=== PATIENT | male | born 1990 | race Caucasian/White ===

== ENCOUNTER 2019-07-27 12:17 | Outpatient (CLI) | payer MEDICAID, SELFPAY ==
--- NOTE | 2019-07-27 | XR_ITS ---
WS: [id number] CERVICAL SPINE TECHNIQUE: 3 views of the cervical spine CLINICAL INFORMATION: CERVICALGIA COMPARISON: None. FINDINGS: Mild cervical curve convex left. Normal dens. Normal C1-2 articulation. Normal lateral masses. Straig htening of the normal cervical lordosis. Normal prevertebral soft tissues. No instability on flexion- extension. XR/XR cervical spine 4-5V [id number] IMPRESSION: 1. Mild cervical curve convex left. 2. No instability on flexion-extension
== END 2019-07-27 12:18 | disposition home or self-care (01) ==
LOC: RADOUTREAD 07-28 07:10
PROVIDERS: Family Provider Family Medicine; Visit Provider Family Medicine
DX: Z76.89 Persons encountering health services in other specified circumstances (principal)

== ENCOUNTER 2021-08-01 16:09 | Inpatient (IN) | payer MEDICAID, SELFPAY ==
[2021-08-01] VITALS (17 sets, daily range): BP systolic 123–144; BP diastolic 78–90; PULSE 91–131; RESP 18–32; TEMP 37.2; O2SAT 96–100; BMI 26.6
--- NOTE | 2021-08-01 16:25 | XR_ITS ---
WS: [id number] XR chest 1V portable [id number] REASON FOR EXAM: COVID FINDINGS: The heart and mediastinum are within normal limits. Calcified granulomatous changes in both hemithoraces. No acute pulmonary parenchymal or pleural abnormality. Bony thorax is intact. XR/XR chest 1V portable [id number] IMPRESSION: No acute chest abnormality.
--- NOTE | 2021-08-01 16:42 | PC.NURSE ---
Called Poison Control at [facility] ( ). Was informed that based on pt's weight, he could tolerate 700 mg of Benadryl and that the half life is 2-3 hours. Pt states he took the Benadryl sometime between 0900 and 1000. Poison Control recommended EKG, salicylate level, acetaminophen level, drug screen, and ETOH level. Recommended supportive measures.
--- NOTE | 2021-08-01 17:03 | ECG_ITS ---
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 Measurements Intervals [place] Rate: 120 P: 54 NC: 122 QRS: 92 QRSD: 90 T: 44 QT: 306 QTc: 433 Interpretive Statements SINUS TACHYCARDIA BORDERLINE RIGHT AXIS DEVIATION [QRS AXIS > 90] No previous ECG available for comparison Electronically Signed On 08-02-2021 7:04:56 PRESS OPERATOR PRINTING by Dolores Ortega M.D. [id number]
--- NOTE | 2021-08-01 17:13 | W.PM.PSYCONS ---
Providers/Reason for Consult Consulting Physican/Specialty*: Landon Roach MD. Psychiatry. Reason for Consult*: Evaluation for lethality. Requesting Physcian: Patricio Bay Attending Physician: Royal Lindsey MD Psych Consult HPI History of Present Illness James Cyr is a 31 year old male who presented to the emergency department with the following report: Chief Complaint: ER Hold Stated Complaint: OVERDOSE Time Seen by Provider: 08/01/21 16:14 History of Present Illness:?? 31-year-old male presents emergency room after having taking 1050 mg tablets of Benadryl around nine or 10 AM this morning. He presents this afternoon at 4 PM. He said he intended to harm himself due to his chronic back pain issues. He is mildly tachycardic but otherwise resting comfortably denies any pain other than his chronic back pain which is somewhat better at this time. She not had any recent trauma or issues. He took the pills with the intent of harming himself. complaint: intentional overdose Substance Ingested:?? Diphenhydramine: Strength of Substance: 50 Number of Pills Ingested: 10 Total Dose: 500 ? ? Intent: suicide attempt? Context: Intentional Overdose: other (Chronic pain issues)? Treatments Prior to Arrival: none He was evaluated in the emergency department with concerns for lethality/psychiatric consult was requested for determination of safety to be discharged. Patient was somewhat lethargic during the interview and was ambivalent about whether the injection was an actual suicide attempt. He never emphatically said that it was not he made comments like I do not think I was necessarily trying to kill myself. He described some issue of pain in his right shoulder and that he was not able to sleep and reported that he was trying to make sure he slept no matter what. Patient is positive for Covid and reporting that he was staying with some friends and that he was not sure where he was going if he was discharged because there were significant concerns about his stability. He was a limited historian but reported that he was not sure what to do. Eventually we were able to reach his sister. She reports that she has not spoken to him for 7 months but gave the following history. She reported that he is always been a odd and had difficulties with life in general. She reports he hasnever had significant psychiatric treatment. She reports that her mother had essentially given him a place to live and taken extremely good care of him given his psychological challenges but that she in the past few years and that he has struggled since. Meds Home Medications and Allergies Home Medications Medication Instructions Recorded Confirmed Last Taken Type hydrochlorothiazide 12.5 mg tablet 12.5 mg PO DAILY 08/02/21 08/02/21 Unknown History lisinopril 40 mg tablet 40 mg PO DAILY 08/02/21 08/02/21 Unknown History meloxicam 7.5 mg tablet 7.5 mg PO DAILY 08/02/21 08/02/21 Unknown History Current Medications Current Medications Generic Name Dose Route Start Last Admin Trade Name Freq PRN Reason Stop Dose Admin Enoxaparin Sodium 40 mg 08/01/21 21:00 08/01/21 23:40 Enoxaparin 40 Mg/0.4 Ml Syringe SUBCUT 40 mg Q24H JOEL Administration Sodium Chloride 1,000 mls @ 75 mls/hr 08/01/21 21:00 08/02/21 00:11 Sodium Chloride 0.9% IV 75 mls/hr .[id number] JOEL Administration PFSH NPU PFSH: Medical History (Updated 08/03/21 @ 05:55 by Landon Roach MD) Chronic back pain COVID-19 Social History (Updated 08/02/21 @ 10:33 by Tim Cao DO) Smoking and tobacco status: never smoked Substance/Drug Use: unknown Mental Status Exam MSE Comments: Is a well-nourished well-developed white male with a fairly large forehead with hospital scrubs on and limited grooming and adequate eye contact. No abnormal movements except for significant psychomotor retardation. Mostly cooperative with exam in mild distress. Speech was limited and decreased rate and volume. Mood described as okay I guess, affect subdued. Thought process organized. Thought content: Patient denied suicidal homicidal ideation, there were no delusions reported noted, he denied any auditory visual hallucinations. Attention and concentration were intact and memory appeared reliable but none were formally tested. He is alert and oriented x3. Insight and judgment were limited and impulse control is impaired. Vitals/I&O/Wt Last Vital Signs Temp 99.0 F 08/01/21 17:00 Pulse 124 H 08/02/21 05:01 Resp 26 H 08/02/21 05:01 BP 134/90 08/02/21 05:01 Pulse Ox 99 08/02/21 05:01 08/01/21 14:59 Intake Total Balance Weight last 48 hrs Weight 79.379 kg Data NPU : 08/03/21 03:34 08/02/21 05:15 A&P Assessment and plan (1) COVID-19: Status: Acute (2) Drug overdose: Status: Acute (3) Leukocytosis: Status: Acute (4) Chronic back pain: Status: Acute (5) Psychosis: Status: Acute (6) History of schizophrenia: Status: Acute Plan This is a 31-year-old white male with a long history of mental health difficulties with limited treatment who presents after an intentional ingestion with question of a suicide attempt who has not been engaged in treatment for some time possibly secondary to bereavement/loss of his mother who was a significant figure in his life with question of autism versus major depressive disorder with psychosis versus schizophrenia versus depression with cluster a personality disorder who was Covid positive. 1. Continue current medication. We will begin to work with him on possible medications to maximize his outpatient functioning. 2. Agree with admission to inpatient medical with evaluation by psychiatry until medically stable to be admitted to the neuropsychiatric unit. 3. We will continue to follow. Attestations NPU Medical Necessity Statement*: N/A. Please see primary team note for medical necessity. However patient will need inpatient psychiatric care after medically cleared from Covid until the safe secondary to suicide attempt. Coding Level of Care Code Acute Director Of Materials for Comfort Ruiz Diagnoses COVID-19 U07.1 Drug overdose T50.901A Leukocytosis D72.829 Chronic back pain M54.9; G89.29 Psychosis F29 History of schizophrenia Z86.59
[2021-08-01 17:15] LABS: Basophils % 0.3 %; Eosinophils # 0.1 10^3/uL (0.0-0.8); Eosinophils % 0.4 %; Hematocrit 45.4 % (42.0-52.0); Hemoglobin 15.2 g/dL (11.7-16.6); Lymphocytes % 13.5 %; Mean Corpuscular HGB Conc 33.5 g/dL (30.0-36.0); Mean Corpuscular Hemoglobin 27.6 pg (28.0-34.0); Mean Corpuscular Volume 82.5 fl (80-94); Mean Platelet Volume 10.8 fL (7.4-10.4); Monocytes # 0.9 10^3/uL (0.2-0.9); Monocytes % 6.1 %; Neutrophils # 11.77 10^3/uL (1.8-7.7); Neutrophils % 79.2 %; Nucleated Red Blood Cells % 0 %; Platelet Count 319 10^3/cmm (130-400); Red Cell Distribution Width 12.6 % (12.1-15.1); White Blood Count 14.9 10^3/uL (4.0-10.0)
--- NOTE | 2021-08-01 17:18 | W.ED.OVERDOS ---
Documented by User: Tim Cao DO 08/02/21 10:34 HPI - Overdose General: Chief Complaint: ER Hold Stated Complaint: OVERDOSE Time Seen by Provider: 08/01/21 16:14 History of Present Illness: 31-year-old male presents emergency room after having taking 1050 mg tablets of Benadryl around nine or 10 AM this morning. He presents this afternoon at 4 PM. He said he intended to harm himself due to his chronic back pain issues. He is mildly tachycardic but otherwise resting comfortably denies any pain other than his chronic back pain which is somewhat better at this time. She not had any recent trauma or issues. He took the pills with the intent of harming himself. MD complaint: intentional overdose Substance Ingested: Diphenhydramine: Strength of Substance: 50 Number of Pills Ingested: 10 Total Dose: 500 Intent: suicide attempt Context: Intentional Overdose: other (Chronic pain issues) Treatments Prior to Arrival: none Review of Systems Const: Denies: fever(s), chills, body aches, change in appetite, fatigue or malaise ENMT: Denies: throat pain, ear or mastoid pain, nasal discharge or nasal congestion Card: Denies: chest pain, edema, dyspnea on exertion or orthopnea Resp: Denies: dyspnea, productive cough or non-productive cough GI: Denies: abdominal pain, nausea, vomiting, diarrhea or constipation PFS ED PFSH: Medical History (Updated 08/02/21 @ 10:32 by Tim Cao DO) Chronic back pain COVID-19 Social History (Updated 08/02/21 @ 10:33 by Tim Cao DO) Smoking and tobacco status: never smoked Substance/Drug Use: unknown Physical Exam Const: GENERAL APPEARANCE: cooperative and comfortable ORIENTATION/CONSCIOUSNESS: Yes awake, Yes oriented to person, Yes oriented to place and Yes oriented to time HENMT: COMMON NORMALS: normocephalic, atraumatic and hearing grossly normal bilaterally HEAD & SCALP: normocephalic and atraumatic Neck/C-Spine: COMMON NORMALS: no JVD Resp: COMMON NORMALS: normal respiratory effort, No retractions, No use of accessory muscles and clear to auscultation bilaterally AUSCULTATION: clear to auscultation bilaterally Cardio: COMMON NORMALS: no JVD, regular rate, regular rhythm and No murmurs present (Cardio) RATE: regular rate RHYTHM: regular rhythm GI: COMMON NORMALS: Soft to palpation and No hepatosplenomegaly present AUSCULTATION: Yes normoactive bowel sounds PALPATION: Yes Soft to palpation, No Tenderness to palpation present (GI), No Guarding due to palpation present (GI) and Yes No hepatosplenomegaly present Extremity: COMMON NORMALS: normal to inspection, capillary refill normal, no clubbing, cyanosis or edema, no calf tenderness and no pedal edema Neuro: SENSORIUM/ORIENTATION: Yes oriented to person, Yes oriented to place and Yes oriented to time Skin: COMMON NORMALS: no rashes or lesions noted GENERAL SKIN EXAM: no rashes or lesions noted Course Vital Signs: Vital signs: Vital Signs Temperature 99.0 F 08/01/21 17:00 Pulse Rate 96 08/02/21 08:00 Respiratory Rate 19 H 08/02/21 08:00 Blood Pressure 141/88 08/02/21 08:00 Pulse Oximetry 97 08/02/21 08:00 MDM - Overdose Medical Decision Making Care turned over to Dr. Bay at change shift see his notes from diagnosis and disposition. Patient was evaluated Dr. Roach here and decided patient is not safe on his own especially for speaking to his sister will place under 96-hour hold spoke to hospitalist will admit Lab Data : 08/02/21 05:15 08/02/21 05:15 Radiology Impressions Chest X-Ray 08/01/21 16:25 IMPRESSION: No acute chest abnormality. Laboratory Results WBC 14.9 10^3/uL (4.0-10.0) H 08/01/21 15:57 RBC 5.50 10^6/uL (4.1-5.3) H 08/01/21 15:57 Hgb 15.2 g/dL (11.7-16.6) 08/01/21 15:57 Hct 45.4 % (42.0-52.0) 08/01/21 15:57 MCV 82.5 fl (80-94) 08/01/21 15:57 MCH 27.6 pg (28.0-34.0) L 08/01/21 15:57 MCHC 33.5 g/dL (30.0-36.0) 08/01/21 15:57 RDW 12.6 % (12.1-15.1) 08/01/21 15:57 Plt Count 319 10^3/cmm (130-400) 08/01/21 15:57 MPV 10.8 fL (7.4-10.4) H 08/01/21 15:57 Neut % (Auto) 79.2 % 08/01/21 15:57 Lymph % (Auto) 13.5 % 08/01/21 15:57 [place] % (Auto) 6.1 % 08/01/21 15:57 Eos % (Auto) 0.4 % 08/01/21 15:57 Baso % (Auto) 0.3 % 08/01/21 15:57 Neut # (Auto) 11.77 10^3/uL (1.8-7.7) H 08/01/21 15:57 Lymph # (Auto) 2.0 10^3/uL (0.8-4.8) 08/01/21 15:57 [place] # (Auto) 0.9 10^3/uL (0.2-0.9) 08/01/21 15:57 Eos # (Auto) 0.1 10^3/uL (0.0-0.8) 08/01/21 15:57 Baso # (Auto) 0.0 10^3/uL (0.0-0.1) 08/01/21 15:57 Nucleated RBC % (auto) 0 % 08/01/21 15:57 Nucleated RBCs # 0.0 /100WBC 08/01/21 15:57 Sodium 135 mmol/L (136-145) L 08/01/21 15:57 Potassium 3.7 mmol/L (3.5-5.1) 08/01/21 15:57 Chloride 100 mmol/L (98-107) 08/01/21 15:57 Carbon Dioxide 18 mmol/L (22-29) L 08/01/21 15:57 Anion Gap 20.7 (5-19) H 08/01/21 15:57 BUN 12 mg/dL (6-20) 08/01/21 15:57 Creatinine 1.2 mg/dL (0.7-1.2) 08/01/21 15:57 GFR Calculation 71.6 mL/min (90-130) L 08/01/21 15:57 Glucose 100 mg/dL (65-115) 08/01/21 15:57 Calculated Osmolality 280 mOsm/kg (285-295) L 08/01/21 15:57 Calcium 10.0 mg/dL (8.5-10.5) 08/01/21 15:57 Total Bilirubin 0.4 mg/dL (0.15-1.2) 08/01/21 15:57 AST 18 U/L (0-40) 08/01/21 15:57 ALT 18 U/L (0-41) 08/01/21 15:57 Alkaline Phosphatase 88 IU/L (40-130) 08/01/21 15:57 Total Protein 7.5 g/dL (6.6-8.7) 08/01/21 15:57 Albumin 4.6 g/dL (3.5-5.2) 08/01/21 15:57 Globulin 2.9 g/dL (1.3-4.6) 08/01/21 15:57 Urine Color Yellow (Yellow) 08/01/21 18:29 Urine Appearance Clear (CLEAR) 08/01/21 18:29 Urine pH 8 (5-7) H 08/01/21 18:29 Ur Specific [place] 1.015 (1.005-1.030) 08/01/21 18:29 Urine Protein Neg (Negative) 08/01/21 18:29 Urine Glucose (UA) Norm (Normal) 08/01/21 18:29 Urine Ketones 1+ (Negative) H 08/01/21 18:29 Urine Blood Neg (Negative) 08/01/21 18:29 Urine Nitrate Negative (Negative) 08/01/21 18:29 Urine Bilirubin Neg (Negative) 08/01/21 18:29 Prot Sulfosalicylic Acd Negative (Negative) 08/01/21 18:29 Urine Urobilinogen Norm mg/dL (Negative) 08/01/21 18:29 Ur Leukocyte Esterase Negative (Negative) 08/01/21 18:29 Salicylates < 0.3 mg/dL (3-10) L 08/01/21 15:57 Urine Opiates Screen Negative ng/mL (Negative) 08/01/21 18:29 Acetaminophen < 5.0 ug/mL (10-30) L 08/01/21 15:57 Ur Barbiturates Screen Negative ng/mL (Negative) 08/01/21 18:29 Ur Phencyclidine Scrn Negative ng/mL (Negative) 08/01/21 18:29 Ur Amphetamines Screen Negative ng/mL (Negative) 08/01/21 18:29 U Benzodiazepines Scrn Negative ng/mL (Negative) 08/01/21 18:29 Urine Cocaine Screen Negative ng/mL (Negative) 08/01/21 18:29 U Marijuana (THC) Screen Negative ng/mL (Negative) 08/01/21 18:29 Ethyl Alcohol < 10 mg/dL (0-10) 08/01/21 15:57 Discharge Plan Discharge Patient Disposition: Admitted As Inpatient Admit Provider: Royal Lindsey Clinical Impression: Drug overdose, COVID-19 Condition: Stable Coding Level of Care Code ED Material Reclaimer for Chg Fwd Exam Comprehensive Documented by User: Patricio Bay MD 08/01/21 21:17 HPI - Overdose General: Chief Complaint: ER Hold Stated Complaint: OVERDOSE Time Seen by Provider: 08/01/21 16:14 History of Present Illness: 31-year-old male presents emergency room after having taking 1050 mg tablets of Benadryl around nine or 10 AM this morning. He presents this afternoon at 4 PM. He said he intended to harm himself due to his chronic back pain issues. He is mildly tachycardic but otherwise resting comfortably denies any pain other than his chronic back pain which is somewhat better at this time. She not had any recent trauma or issues. He took the pills with the intent of harming himself. Substance Ingested: Diphenhydramine: Total Dose: 500 PFSH ED PFSH: Medical History (Updated 08/02/21 @ 10:32 by Tim Cao DO) Chronic back pain COVID-19 Social History (Updated 08/02/21 @ 10:33 by Tim Cao DO) Smoking and tobacco status: never smoked Substance/Drug Use: unknown Course Vital Signs: Vital signs: Vital Signs Temperature 99.0 F 08/01/21 17:00 Pulse Rate 96 08/02/21 08:00 Respiratory Rate 19 H 08/02/21 08:00 Blood Pressure 141/88 08/02/21 08:00 Pulse Oximetry 97 08/02/21 08:00 MDM - Overdose Medical Decision Making Patient was evaluated Dr. Roach here and decided patient is not safe on his own especially for speaking to his sister will place under 96-hour hold spoke to hospitalist will admit Lab Data : 08/02/21 05:15 08/02/21 05:15 Radiology Impressions Chest X-Ray 08/01/21 16:25
[2021-08-01 18:14] LABS: Acetaminophen < 5.0 ug/mL (10-30); Alanine Aminotransferase 18 U/L (0-41); Albumin Level 4.6 g/dL (3.5-5.2); Alcohol Level < 10 mg/dL (0-10); Alkaline Phosphatase 88 IU/L (40-130); Anion Gap 20.7 (5-19); Aspartate Amino Transferase 18 U/L (0-40); Blood Urea Nitrogen 12 mg/dL (6-20); Carbon Dioxide 18 mmol/L (22-29); Chloride 100 mmol/L (98-107); Globulin 2.9 g/dL (1.3-4.6); Glomerular Filtration Rate 71.6 mL/min (90-130); Glucose 100 mg/dL (65-115); Osmolality Calculated 280 mOsm/kg (285-295); Potassium 3.7 mmol/L (3.5-5.1); Salicylate < 0.3 mg/dL (3-10); Sodium 135 mmol/L (136-145); Total Bilirubin 0.4 mg/dL (0.15-1.2); Total Protein 7.5 g/dL (6.6-8.7)
[2021-08-01 18:53] LABS: Add Urine Microscopic? NO; Charge for UA Resulting for Rev
--- NOTE | 2021-08-01 18:59 | PC.NURSE ---
Armando Thakur, pt sister and guardian, was spoken to in waiting room. Her cell number is [phone].
[2021-08-01 19:00] LABS: Bilirubin Urine Neg (Negative); Blood Urine Neg (Negative); Glucose Urine UA Norm (Normal); Ketones Urine 1+ (Negative); Leukocyte Esterase Urine Negative (Negative); Nitrate Urine Negative (Negative); Protein Urine Neg (Negative); Specific Gravity, Urine 1.015 (1.005-1.030); Sulfosalicylic Acid Urine Negative (Negative); Urine Appearance Clear (CLEAR); Urine Color Yellow (Yellow); Urobilinogen Urine Norm (Negative); pH Urine 8 (5-7)
[2021-08-01 19:06] LABS: Amphetamines Screen Urine Negative (Negative); Barbiturates Screen Urine Negative (Negative); Benzodiazepines Screen Urine Negative (Negative); Cocaine Screen Urine Negative (Negative); Opiate Screen Urine Negative (Negative); PCP Screen Urine Negative (Negative); THC Screen Urine Negative (Negative)
--- NOTE | 2021-08-01 20:56 | P.HP_ITS ---
Providers/Chief Complaint Chief Complaint: OVERDOSE History of Present Illness James Cyr is a 31 year old male with past medical history of chronic back pain, recently diagnosed with COVID-19, was brought in with chief complaint of intentional drug overdose , according to the patient He was trying to harm himself due to his chronic back pain. He consumed Benadryl 50 mg 10 tablets. Upon arrival in the ER he was worked up for above-mentioned complaint. Pertinent imaging studies: X-ray chest no acute findings EKG: sinus tachycardia borderline right axis deviation. Labs: WBC 14.9 H&H: 15.2/45.4 , PLT : 319 , serum sodium 135 serum potassium 3.7, serum bicarbonate 18 BUN and serum creatinine 12/1.2, urinalysis clean, U tox: Negative Psychiatry was consulted in the ER: He has been placed on 96-hour hold Review of Systems General: Reports: 10 or more systems reviewed and unremarkable except in HPI and below Const: Denies: fever(s), chills, body aches, change in appetite or diaphoresis Card: Denies: palpitations, edema, swelling of feet/ankles, dyspnea on exertion, orthopnea or leg pain with exertion Resp: Denies: dyspnea, productive cough, wheezing or pain on inspiration GI: Denies: abdominal pain, nausea, vomiting, diarrhea or constipation : Denies: flank pain or difficulty urinating Musc: Denies: back pain, extremity pain or extremity swelling Neuro: Denies: headache(s), difficulty walking or confusion PFSH Acute PFSH: Medical History (Updated 08/01/21 @ 21:17 by Patricio Bay MD) Chronic back pain Vitals/I&O/Wt Last Vital Signs Temp 99.0 F 08/01/21 17:00 Pulse 120 H 08/01/21 18:30 Resp 31 H 08/01/21 18:30 BP 144/89 08/01/21 18:30 Pulse Ox 98 08/01/21 18:30 Weight last 48 hrs Weight 79.379 kg Physical Exam Const: COMMON NORMALS: patient oriented x3 HENMT: COMMON NORMALS: normocephalic, atraumatic, hearing grossly normal bilaterally and external ears normal HEAD & SCALP: normocephalic and atraumatic EXTERNAL EAR: Yes external ears normal Eye: COMMON NORMALS: no scleral icterus GENERAL EYE: appearance normal, both eyes and all related structures Chest: COMMONS NORMALS: normal inspection of the chest and normal palpation of entire chest wall CHEST: Yes Symmetrical chest wall rise Resp: COMMON NORMALS: normal respiratory effort, No retractions, No use of accessory muscles and clear to auscultation bilaterally EFFORT & INSPECTION: Yes symmetric chest movement AUSCULTATION: clear to auscultation bilaterally Cardio: COMMON NORMALS: regular rate, regular rhythm, S1 normal heart sound present, S2 normal heart sound present, No gallops present (Cardio), No murmurs present (Cardio), No rub (Cardio) and Peripheral pulses 2+ throughout RATE: regular rate RHYTHM: regular rhythm HEART SOUNDS: S1 normal heart sound present and S2 normal heart sound present PERIPHERAL PULSES: Peripheral pulses 2+ throughout GI: COMMON NORMALS: Normal to inspection, nondistended, normoactive bowel sounds present, Soft to palpation, non-tender, No hepatosplenomegaly present and no masses AUSCULTATION: Yes normoactive bowel sounds PALPATION: Yes Soft to palpation and Yes No hepatosplenomegaly present RECTAL EXAM: Yes deferred Extremity: COMMON NORMALS: no clubbing, cyanosis or edema and no pedal edema Neuro: COMMON NORMALS: patient oriented x3 Data : 08/01/21 15:57 08/01/21 15:57 CXR: My impression: No Acute Findings Radiologist's impression: No acute chest abnormality. EKG 1: My Interpretation: Sinus Tachycardia BORDERLINE RIGHT AXIS DEVIATION String Studies Director Interpretation: SINUS TACHYCARDIA BORDERLINE RIGHT AXIS DEVIATION EKG computer-generated impression: Chest X-Ray 08/01/21 16:25 IMPRESSION: No acute chest abnormality. A&P Assessment and plan (1) Drug overdose, intentional: Status: Acute (2) COVID-19: Status: Acute (3) Chronic back pain: Status: Acute (4) Leukocytosis: Status: Acute Plan Assessment: Intentional drug overdose: COVID-19 Chronic back pain. Plan: Continue to monitor on telemetry Patient did not have any findings of Covid pneumonia: We will not use the normal COVID-19 regimen. Currently on 96-hour hold Appreciate psychiatry consult. DVT prophylaxis on Lovenox Currently on one-to-one #CODE STATUS: Full code Attestations Medical Necessity Statement*: Patient needs to be in hospital for management of intentional drug overdose. Anticipated length of stay greater than 2 midnights. 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
[2021-08-01] MEDS: sodium chloride 0.9% 1,000 ML 999 ML IV (23:39)
[2021-08-01] MEDS: enoxaparin 40 mg/0.4 mL Syringe SUBCUT (23:40)
[2021-08-02] VITALS (20 sets, daily range): BP systolic 103–149; BP diastolic 62–95; PULSE 65–108; RESP 15–26; O2SAT 96–100
[2021-08-02] MEDS: sodium chloride 0.9% 1,000 ML 75 ML IV ×2 (00:11→09:32)
[2021-08-02 05:27] LABS: Basophils % 0.2 %; Eosinophils # 0.3 10^3/uL (0.0-0.8); Eosinophils % 2.9 %; Hematocrit 41.8 % (42.0-52.0); Hemoglobin 13.5 g/dL (11.7-16.6); Lymphocytes # 4.1 10^3/uL (0.8-4.8); Lymphocytes % 39.7 %; Mean Corpuscular HGB Conc 32.3 g/dL (30.0-36.0); Mean Corpuscular Volume 86.5 fl (80-94); Mean Platelet Volume 10.3 fL (7.4-10.4); Monocytes # 0.8 10^3/uL (0.2-0.9); Monocytes % 7.9 %; Neutrophils # 5.04 10^3/uL (1.8-7.7); Neutrophils % 48.5 %; Nucleated Red Blood Cells % 0 %; Platelet Count 294 10^3/cmm (130-400); Red Blood Count 4.83 10^6/uL (4.1-5.3); Red Cell Distribution Width 13.2 % (12.1-15.1); White Blood Count 10.4 10^3/uL (4.0-10.0)
[2021-08-02 05:44] LABS: Adenovirus Not Detected (NOT DETECT); Chlamydia Pneumoniae Not Detected (NOT DETECT); Coronavirus 229E,HKU1,NL63,OC4 Not Detected (NOT DETECT); Human Metapneumovirus Not Detected (NOT DETECT); Human Rhinovirus/Enterovirus Not Detected (NOT DETECT); Influenza A Not Detected (NOT DETECT); Influenza A H1 Not Detected (NOT DETECT); Influenza A H1-2009 Not Detected (NOT DETECT); Influenza A H3 Not Detected (NOT DETECT); Influenza B Not Detected (NOT DETECT); Mycoplasma Pneumoniae Not Detected (NOT DETECT); Parainfluenza Virus Type 1 Not Detected (NOT DETECT); Parainfluenza Virus Type 2 Not Detected (NOT DETECT); Parainfluenza Virus Type 3 Not Detected (NOT DETECT); Parainfluenza Virus Type 4 Not Detected (NOT DETECT); Respiratory Syncytial Virus A Not Detected (NOT DETECT); Respiratory Syncytial Virus B Not Detected (NOT DETECT); SARS-COV-2 Detected (NOT DETECT)
[2021-08-02 05:47] LABS: Blood Urea Nitrogen 13 mg/dL (6-20); Calcium 8.7 mg/dL (8.5-10.5); Carbon Dioxide 19 mmol/L (22-29); Chloride 107 mmol/L (98-107); Glomerular Filtration Rate 99.8 mL/min (90-130); Glucose 83 mg/dL (65-115); Osmolality Calculated 285 mOsm/kg (285-295); Sodium 138 mmol/L (136-145)
[2021-08-02 05:57] LABS: Anion Gap 16.4 (5-19); Potassium 4.4 mmol/L (3.5-5.1)
[2021-08-02 06:43] LABS: Slide Review Slide Review Perform
--- NOTE | 2021-08-02 13:47 | P.PN_ITS ---
Subjective Subjective: Interval history: Apart from pain/cramp in the right shoulder denies other symptoms, states that he has been having cramps around the right shoulder toward the chest and right side neck. Denies injury to the shoulder. Vitals/I&O/Wt Last Vital Signs Temp 99.0 F 08/01/21 17:00 Pulse 98 08/02/21 13:01 Resp 17 08/02/21 13:01 BP 138/87 08/02/21 13:01 Pulse Ox 97 08/02/21 13:01 08/01/21 08/02/21 08/02/21 22:59 06:59 14:59 Intake Total 1000 / 1000 1000 / 1000 Balance 1000 / 1000 1000 / 1000 Weight last 48 hrs Weight 79.379 kg Physical Exam Const: COMMON NORMALS: no acute distress and patient oriented x3 HENMT: COMMON NORMALS: oropharynx normal Neck/C-Spine: COMMON NORMALS: no JVD Resp: COMMON NORMALS: normal respiratory effort and clear to auscultation bilaterally AUSCULTATION: clear to auscultation bilaterally Cardio: COMMON NORMALS: no JVD, regular rhythm, S1 normal heart sound present, S2 normal heart sound present and No murmurs present (Cardio) RHYTHM: regular rhythm HEART SOUNDS: S1 normal heart sound present and S2 normal heart sound present GI: COMMON NORMALS: Normal to inspection, nondistended, normoactive bowel sounds present, Soft to palpation and non-tender PALPATION: Yes Soft to palpation Extremity: COMMON NORMALS: no joint enlargement and no pedal edema NARRATIVE EXTREMITY EXAM: R shoulder w few finger impressions/spots, states was doing massage. No swelling, erythema, warmth. No difficulty with PROM flexion, extension, abduction, adduction. Neuro: COMMON NORMALS: patient oriented x3 and moves all extremities Skin: COMMON NORMALS: no rashes or lesions noted GENERAL SKIN EXAM: no rashes or lesions noted Data : 08/02/21 05:15 08/02/21 05:15 A&P Assessment and plan (1) Drug overdose, intentional: Pending psychiatric assessment and further care For now continue in current location given COVID-19 isolation. Today is day 9. Should be completing isolation requirement tomorrow on day 10 if remains asymptomatic. Continue one-to-one sitter. Status: Acute (2) COVID-19: Day 9 today. Tomorrow would be day 10, after which would be able to discontinue isolation. Status: Acute (3) Chronic back pain: Status: Acute (4) Leukocytosis: Resolving. Status: Acute Plan R shoulder pain: Shoulder x-ray. I do not see evidence at this time of infectious process going on based on examination. He denies any recreational or injection drug use. Attestations Medical Necessity Statement*: Continue admission for assessment management following suicide attempt with medication overdose in the setting of COVID-19 infection. Coding Level of Care Code Acute Client Onboarding Analyst for Comfort Fwkaleb Diagnoses Drug overdose, intentional T50.902A COVID-19 U07.1 Chronic back pain M54.9; G89.29 Leukocytosis D72.829
--- NOTE | 2021-08-02 13:47 | XR_ITS ---
WS: [id number] XR shoulder RT min 2V* [id number] REASON FOR EXAM: pain FINDINGS: No fracture or focal bone lesion. Moderate narrowing of the acromioclavicular joint with mild subchondral sclerosis. Normal alignment o f the acromioclavicular joint. Glenohumeral joint is intact. No significant subchondral bony abnormality of the humerus or glenoid. No soft tissue abnormality XR/XR shoulder RT min 2V* [id number] IMPRESSION: Mild osteoarthritis of the acromioclavicular joint. No acute abnormality.
--- NOTE | 2021-08-02 17:28 | P.NPUPN_ITS ---
Subjective NPU Subjective: Interval history: Patient presents today reporting that he is feeling okay. We had a discussion about having spoken to his sister and reviewed some of the historical data that she shared. He did identify that he did have some [facility] treatment in the past 3 to 4 years. He did endorse that he at times has psychosis. He shared this without any affect of connection. We discussed the diagnostic question of social anxiety, schizoid personality/schizotypal personality disorders, schizophrenia, autism and major depressive disorder with psychosis. We also discussed his mother and her role in helping him but also the challenges has caused since her . Additionally reviewed the likelihood of admission to the neuropsychiatric unit once he is medically cleared from an infectious disease standpoint. We discussed the risk benefits and alternatives of initiating medication and he understood but was somewhat hesitant agreed to continue the conversation as is documented in this note. Mental Status Exam MSE Comments: This a well-nourished well-developed white male with a fairly large forehead with hospital scrubs on and limited grooming and adequate eye contact.? No abnormal movements except for significant psychomotor retardation.? Mostly cooperative with exam in mild distress.? Speech was limited and decreased rate and volume.? Mood described as okay, affect subdued.? Thought process organized.? Thought content: Patient denied suicidal homicidal ideation, there were no delusions reported or noted, he denied any auditory or visual hallucinations.? Attention and concentration were intact and memory appeared reliable but none were formally tested.? He is alert and oriented x3.? Insight and judgment were limited and impulse control is impaired. Vitals/I&O/Wt Last Vital Signs Temp 99.0 F L 08/01/21 17:00 Pulse 88 08/02/21 17:00 Resp 16 08/02/21 17:00 BP 130/89 08/02/21 17:00 Pulse Ox 98 08/02/21 17:00 08/02/21 14:59 Intake Total 1000 / 1000 Balance 1000 / 1000 Weight last 48 hrs Weight 79.379 kg Data NPU : 08/03/21 03:34 08/02/21 05:15 A&P Assessment and plan (1) History of schizophrenia: Status: Acute (2) Psychosis: Status: Acute (3) Depression: Status: Acute (4) COVID-19: Status: Acute (5) Leukocytosis: Status: Acute (6) Drug overdose, intentional: Status: Acute Plan This is a 31-year-old white male with a long history of mental health difficulties with limited treatment who presents after an intentional ingestion with question of a suicide attempt who has not been engaged in treatment for some time possibly secondary to bereavement/loss of his mother who was a sign ificant figure in his life with question of autism versus major depressive disorder with psychosis versus schizophrenia versus depression with cluster a personality disorder who was Covid positive. 1.? Continue current medication.? We will begin to work with him on possible medications to maximize his outpatient functioning. Agree to continue conversation about possible medications tomorrow. 2.? Agree with admission to inpatient medical with evaluation by psychiatry until medically stable to be admitted to the neuropsychiatric unit. 3.? We will continue to follow. Attestations NPU Medical Necessity Statement*: N/A.? Please see primary team note for medical necessity.? However patient will need inpatient psychiatric care after medically cleared from Covid until the safe secondary to suicide attempt. 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
--- NOTE | 2021-08-02 19:07 | PC.NURSE ---
report received, sitter in place. NAD
[2021-08-02] MEDS: enoxaparin 40 mg/0.4 mL Syringe SUBCUT (20:53)
[2021-08-02] MEDS: acetaminophen 325 mg Tablet 650 MG PO (20:57)
[2021-08-03] VITALS: BP 135/78; PULSE 79; RESP 14; TEMP 36.8; O2SAT 98
[2021-08-03] MEDS: sodium chloride 0.9% 1,000 ML 75 ML IV (01:02)
[2021-08-03 03:45] LABS: Basophils % 0.3 %; Eosinophils # 0.3 10^3/uL (0.0-0.8); Eosinophils % 2.7 %; Hematocrit 44.9 % (42.0-52.0); Hemoglobin 14.4 g/dL (11.7-16.6); Lymphocytes # 3.2 10^3/uL (0.8-4.8); Lymphocytes % 31.2 %; Mean Corpuscular HGB Conc 32.1 g/dL (30.0-36.0); Mean Corpuscular Hemoglobin 27.7 pg (28.0-34.0); Mean Corpuscular Volume 86.5 fl (80-94); Mean Platelet Volume 10.4 fL (7.4-10.4); Monocytes # 0.8 10^3/uL (0.2-0.9); Monocytes % 7.6 %; Neutrophils # 5.84 10^3/uL (1.8-7.7); Neutrophils % 57.7 %; Nucleated Red Blood Cells % 0 %; Platelet Count 284 10^3/cmm (130-400); Red Blood Count 5.19 10^6/uL (4.1-5.3); White Blood Count 10.1 10^3/uL (4.0-10.0)
[2021-08-03 04:00] VITALS: BP 135/79; PULSE 79; RESP 16; TEMP 36.2; O2SAT 98
--- NOTE | 2021-08-03 07:09 | PC.NURSE ---
This nurse received report and took over care.
[2021-08-03 08:24] LABS: Blood Urea Nitrogen 14 mg/dL (6-20); Calcium 8.1 mg/dL (8.5-10.5); Carbon Dioxide 13 mmol/L (22-29); Chloride 108 mmol/L (98-107); Glomerular Filtration Rate 114.3 mL/min (90-130); Glucose 94 mg/dL (65-115); Osmolality Calculated 274 mOsm/kg (285-295); Sodium 132 mmol/L (136-145)
[2021-08-03 08:25] LABS: Anion Gap 15.1 (5-19); Potassium 4.1 mmol/L (3.5-5.1)
[2021-08-03 11:11] VITALS: BP 154/94; PULSE 87; RESP 13; O2SAT 98
--- NOTE | 2021-08-03 18:15 | PM.PN ---
Subjective Subjective: Interval history: Reports he is doing well. Denies any shortness of breath, cough, no nausea vomiting, no diarrhea. Vitals/I&O/Wt Last Vital Signs Temp 97.1 F L 08/03/21 04:00 Pulse 87 08/03/21 11:11 Resp 13 08/03/21 11:11 BP 154/94 08/03/21 11:11 Pulse Ox 98 08/03/21 11:11 Physical Exam Const: COMMON NORMALS: no acute distress and patient oriented x3 HENMT: COMMON NORMALS: oropharynx normal Neck/C-Spine: COMMON NORMALS: no JVD Resp: COMMON NORMALS: normal respiratory effort and clear to auscultation bilaterally AUSCULTATION: clear to auscultation bilaterally Cardio: COMMON NORMALS: no JVD, regular rhythm, S1 normal heart sound present, S2 normal heart sound present and No murmurs present (Cardio) RHYTHM: regular rhythm HEART SOUNDS: S1 normal heart sound present and S2 normal heart sound present GI: COMMON NORMALS: Normal to inspection, nondistended, normoactive bowel sounds present, Soft to palpation and non-tender PALPATION: Yes Soft to palpation Extremity: COMMON NORMALS: no joint enlargement and no pedal edema NARRATIVE EXTREMITY EXAM: R shoulder wo swelling, erythema, warmth. No difficulty with PROM flexion, extension, abduction, adduction. Neuro: COMMON NORMALS: patient oriented x3 and moves all extremities Skin: COMMON NORMALS: no rashes or lesions noted GENERAL SKIN EXAM: no rashes or lesions noted Data : 08/03/21 03:34 08/03/21 07:30 A&P Assessment and plan (1) Drug overdose, intentional: Doing well, tachycardia resolved. Maintaining blood pressure. Remains awake and alert. Pending psychiatric further psychiatric assessment and care. Status: Acute (2) COVID-19: Diagnosed 10 days ago, confirms today that diagnosis was by home test. Remains asymptomatic. At this time there is no reason to believe that he is providing misleading information regarding test result or timing which he provided an open-ended question. As diagnosis was 10 days ago and he remains asymptomatic can discontinue isolation as discussed with our incident command and he may transfer to neuropsychiatric unit for further assessment and care later this evening. Status: Acute (3) Chronic back pain: Status: Acute (4) Leukocytosis: Resolving. Status: Acute Plan R shoulder pain: Mild osteoarthritis noted in acromioclavicular joint on right shoulder x-ray. No fracture or acute abnormality. No evidence at this time of infectious process going on based on examination. 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
[2021-08-03 18:46] VITALS: BP 151/92; PULSE 95; RESP 16; O2SAT 95
--- NOTE | 2021-08-03 19:16 | P.NPUPN_ITS ---
Subjective NPU Subjective: Interval history: Patient presents today still in the emergency department overflow area. We discussed the fact that the plan is for him to come down to the neuropsychiatric unit now that he should be medically cleared from his Covid. Once again asked that he was open to a trial of medication. He did not want to start something for the question of psychosis however he was open to an antidepressant/antianxiety medication. We discussed the fact that he did rememb er the names of the medications but he did not feel he was taking last was effective. We agreed that I would search the records and start an antidepressant that was not the one was last taking at [facility]. We discussed the risk benefits and alternatives of initiating his antidepressant and he understoo d and agreed proceed as documented in this note. Medications: Medication Review Details: This a well-nourished well-developed white male with a fairly large forehead with hospital scrubs on and limited grooming and adequate eye contact.? No abnormal movements except for significant psychomotor retardation.? Mostly cooperative with exam in mild distress.? Speech was limited and decreased rate and volume.? Mood described as still a little down, affect subdued.? Thought process organized.? Thought content: Patient denied suicidal homicidal ideation, there were no delusions reported or noted, he denied any auditory or visual hallucinations.? Attention and concentration were intact and memory appeared reliable but none were formally tested.? He is alert and oriented x3.? Insight and judgment were limited and impulse control is limited. Vitals/I&O/Wt Last Vital Signs Temp 97.1 F L 08/03/21 04:00 Pulse 95 08/03/21 18:46 Resp 16 08/03/21 18:46 BP 151/92 08/03/21 18:46 Pulse Ox 95 08/03/21 18:46 Data NPU : 08/03/21 03:34 08/03/21 07:30 A&P Assessment and plan (1) Depression: Status: Acute (2) History of schizophrenia: Status: Acute (3) Psychosis: Status: Acute (4) COVID-19: Status: Acute (5) Drug overdose: Status: Acute (6) Leukocytosis: Status: Acute (7) Chronic back pain: Status: Acute Plan This is a 31-year-old white male with a long history of mental health difficulties with limited treatment who presents after an intentional ingestion with question of a suicide attempt who has not been engaged in treatment for some time possibly secondary to bereavement/loss of his mother who was a significant figure in his life with question of autism versus major depressive disorder with psychosis versus schizophrenia versus depression with cluster a personality disorder who was Covid positive. 1.? Continue current medication.? Patient was last taking Prozac 60 mg daily in 2019. We will initiate Lexapro 10 mg p.o. every morning in the morning. 2. Continue every 15 minute checks for safety. 3. Encourage individual, group and milieu therapies. 4. Encourage sober living treatment after discharge at the highest level of care to which he is willing to commit. Attestations NPU Medical Necessity Statement*: Inpatient hospitalization is medically necessary and the clinically appropriate intervention at this time. We will monitor medication to make changes as indicated. Patient will be in the hospital for o robert two midnights. Likely length of stay 3 to 5 days. 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
[2021-08-03 22:20] VITALS: BP 157/87; PULSE 108; RESP 17; TEMP 36.8; O2SAT 100
[2021-08-04 06:00] VITALS: BP 128/84; PULSE 79; RESP 18; TEMP 36.4; O2SAT 99
[2021-08-04 08:02] LABS: Basophils % 0.2 %; Eosinophils # 0.2 10^3/uL (0.0-0.8); Eosinophils % 1.5 %; Hematocrit 46.5 % (42.0-52.0); Hemoglobin 14.7 g/dL (11.7-16.6); Lymphocytes # 2.6 10^3/uL (0.8-4.8); Lymphocytes % 24.6 %; Mean Corpuscular HGB Conc 31.6 g/dL (30.0-36.0); Mean Corpuscular Hemoglobin 27.8 pg (28.0-34.0); Mean Corpuscular Volume 88.1 fl (80-94); Mean Platelet Volume 9.9 fL (7.4-10.4); Monocytes # 0.8 10^3/uL (0.2-0.9); Monocytes % 7.3 %; Neutrophils # 7.01 10^3/uL (1.8-7.7); Neutrophils % 65.9 %; Nucleated Red Blood Cells % 0 %; Platelet Count 315 10^3/cmm (130-400); Red Blood Count 5.28 10^6/uL (4.1-5.3); Red Cell Distribution Width 12.8 % (12.1-15.1); White Blood Count 10.6 10^3/uL (4.0-10.0)
[2021-08-04 08:24] LABS: Anion Gap 21.9 (5-19); Blood Urea Nitrogen 10 mg/dL (6-20); Calcium 9.3 mg/dL (8.5-10.5); Carbon Dioxide 20 mmol/L (22-29); Chloride 105 mmol/L (98-107); Glomerular Filtration Rate 114.3 mL/min (90-130); Glucose 117 mg/dL (65-115); Osmolality Calculated 294 mOsm/kg (285-295); Potassium 4.9 mmol/L (3.5-5.1); Sodium 142 mmol/L (136-145)
[2021-08-04] MEDS: lisinopril 20 mg Tablet 40 MG PO (09:31)
[2021-08-04] MEDS: hydroCHLOROthiazide 25 mg Tablet 12.5 MG PO (09:32)
[2021-08-04 14:00] VITALS: BP 139/97; PULSE 94; RESP 18; TEMP 36.7; O2SAT 100
--- NOTE | 2021-08-04 18:03 | W.PM.NPUPNS ---
Subjective NPU Subjective: Interval history: Patient presents today reporting that he is feeling a little better and doing okay with the idea of taking medication maybe for depression and anxiety but not so much for thought disorder. We discussed the risk-benefit alternatives of Lexapro and he understood agreed proceed as is documented in this note. He was somewhat interested in the idea of him when he would be able to leave but did not appreciate that his options for leaving had diminished. He was advised to reach out to the family where he has been staying as there may be concerns about his returning. We discussed that his sister has been in contact and seems like he might be a helpful option as well. Mental Status Exam MSE Comments: This a well-nourished well-developed white male with a fairly large forehead with hospital scrubs on and limited grooming and adequate eye contact.? No abnormal movements except for significant psychomotor retardation.? Mostly cooperative with exam in mild distress.? Speech was limited and decreased rate and volume.? Mood described as still a little better, affect subdued.? Thought process organized.? Thought content: Patient denied suicidal homicidal ideation, there were no delusions reported or noted, he denied any auditory or visual hallucinations.? Attention and concentration were intact and memory appeared reliable but none were formally tested.? He is alert and oriented x3.? Insight and judgment were limited and impulse control is limited, intellectual ability limited versus impaired. Vitals/I&O/Wt Last Vital Signs Temp 98.6 F 08/04/21 21:24 Pulse 114 H 08/04/21 21:24 Resp 16 08/04/21 21:24 BP 145/94 08/04/21 21:24 Pulse Ox 97 08/04/21 21:24 Data NPU : 08/04/21 07:43 08/04/21 07:43 A&P Assessment and plan (1) Intellectual disability: Status: Acute (2) Depression: Status: Acute (3) History of schizophrenia: Status: Acute (4) Psychosis: Status: Acute (5) COVID-19: Status: Acute (6) Leukocytosis: Status: Acute (7) Drug overdose, intentional: Status: Acute (8) Chronic back pain: Status: Acute Plan This is a 31-year-old white male with a long history of mental health difficulties with limited treatment who presents after an intentional ingestion with question of a suicide attempt who has not been engaged in treatment for some time possibly secondary to bereavement/loss of his mother who was a significant figure in his life with question of autism versus major depressive disorder with psychosis versus schizophrenia versus depression with cluster a personality disorder who was Covid positive. 1.? Continue current medication.? Patient was last taking Prozac 60 mg daily in 2019.? We will initiate Lexapro 10 mg p.o. every morning in the morning. 2.? Continue every 15 minute checks for safety. 3.? Encourage individual, group and milieu therapies. 4.? Encourage sober living treatment after discharge at the highest level of care to which he is willing to commit. Involuntary Hold Information 96 Hour Hold: 96 Hour Involuntary Admission: Yes 96 Hour Hold Ending Date: 08/07/21 96 Hour Hold Ending Time: 21:00 Attestations NPU Medical Necessity Statement*: Inpatient hospitalization is medically necessary and the clinically appropriate intervention at this time. We will monitor medication to make changes as indicated. Likely length of stay 2-4 days. 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
[2021-08-04] MEDS: acetaminophen 325 mg Tablet 650 MG PO (20:42)
[2021-08-04 21:24] VITALS: BP 145/94; PULSE 114; RESP 16; TEMP 37; O2SAT 97
[2021-08-05 06:00] VITALS: BP 127/80; PULSE 100; RESP 16; TEMP 36.4; O2SAT 99
[2021-08-05] MEDS: escitalopram 10 mg Tablet PO (08:30)
[2021-08-05] MEDS: hydroCHLOROthiazide 25 mg Tablet 12.5 MG PO (08:30)
[2021-08-05] MEDS: lisinopril 20 mg Tablet 40 MG PO (08:33)
[2021-08-05 14:00] VITALS: BP 112/72; PULSE 106; RESP 17; TEMP 36.8; O2SAT 94
--- NOTE | 2021-08-05 15:10 | W.PM.NPUPNS ---
Subjective NPU Subjective: Interval history: Patient presents today reporting that he is wanting to go home soon. That he misses his family. We discussed that the place he was living but all seem to be wanting him to return. He was encouraged to reach out to his sister and he reported that he would do that and stated that he would be willing to go with her. We discussed the fact that family is wondering if they should resume guardianship given the limitations that he did not seem to be very resistant to that idea. Later in the day there was a call from his aunt Edna who reports that she is an employee in the hospital system and that she would be open to guardianship and that she could be a place for him to discharge to next week. Mental Status Exam MSE Comments: This a well-nourished well-developed white male with a fairly large forehead with hospital scrubs on and limited grooming and adequate eye contact.? No abnormal movements except for psychomotor retardation.? Mostly cooperative with exam in mild distress.? Speech was limited and decreased rate and volume.? Mood described as feeling better, affect subdued.? Thought process organized.? Thought content: Patient denied suicidal homicidal ideation, there were no delusions reported or noted, he denied any auditory or visual hallucinations.? Attention and concentration were intact and memory appeared reliable but none were formally tested.? He is alert and oriented x3.? Insight and judgment were limited and impulse control is limited, intellectual ability limited versus impaired. Vitals/I&O/Wt Last Vital Signs Temp 98.3 F 08/05/21 14:00 Pulse 106 H 08/05/21 14:00 Resp 17 08/05/21 14:00 BP 112/72 08/05/21 14:00 Pulse Ox 94 08/05/21 14:00 Data NPU : 08/04/21 07:43 08/04/21 07:43 A&P Assessment and plan (1) Intellectual disability: Status: Acute (2) Depression: Status: Acute (3) History of schizophrenia: Status: Acute (4) Psychosis: Status: Acute (5) COVID-19: Status: Acute (6) Leukocytosis: Status: Acute (7) Drug overdose, intentional: Status: Acute (8) Chronic back pain: Status: Acute Plan This is a 31-year-old white male with a long history of mental health difficulties with limited treatment who presents after an intentional ingestion with question of a suicide attempt who has not been engaged in treatment for some time possibly secondary to bereavement/loss of his mother who was a significant figure in his life with question of autism versus major depressive disorder with psychosis versus schizophrenia versus depression with cluster a personality disorder who was Covid positive. 1.? Continue current medication.? Patient was last taking Prozac 60 mg daily in 2019.? We will initiate Lexapro 10 mg p.o. every morning in the morning. 2.? Continue every 15 minute checks for safety. 3.? Encourage individual, group and milieu therapies. 4.? Encourage sober living treatment after discharge at the highest level of care to which he is willing to commit. 5. We will work with treatment team Saturday starting to determine a safe and reasonable place for him to discharge as well as looking if we can assist in resumption of him having a guardian. Involuntary Hold Information 96 Hour Hold: 96 Hour Involuntary Admission: Yes 96 Hour Hold Ending Date: 08/07/21 96 Hour Hold Ending Time: 21:00 Attestations NPU Medical Necessity Statement*: Inpatient hospitalization is medically necessary and the clinically appropriate intervention at this time. We will monitor medication to make changes as indicated. Likely length of stay 2-4 days. 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
[2021-08-05] MEDS: acetaminophen 325 mg Tablet 650 MG PO (20:53)
[2021-08-05 21:27] VITALS: BP 113/80; PULSE 111; RESP 17; TEMP 36.3; O2SAT 97
--- NOTE | 2021-08-06 05:10 | PC.NURSE ---
Patient c/o of neck and shoulder pain, given PRN tylenol as ordered with noted effectiveness.
[2021-08-06 06:00] VITALS: BP 141/75; PULSE 105; RESP 16; TEMP 36.8; O2SAT 97; BMI 25.0
--- NOTE | 2021-08-06 09:10 | P.NPUPN_ITS ---
Subjective NPU Subjective: Interval history: Patient presents today reporting that he is doing a little more optimistic. He reports he did speak to his aunt, and that she did report that she would participate in a solution to his conundrum. He also endorsed a willingness to get connected to services tomorrow with the treatment team and that he understands he should engage in continued psychiatric follow-up to be able to avoid getting back to this place. Overall he reports he is doing fine and feels that he is supported by the milieu community on the unit. Reports he is eating and sleeping better and feeling less anxious. Mental Status Exam MSE Comments: This a well-nourished well-developed white male with a fairly large forehead with hospital scrubs on and limited grooming and adequate eye contact.? No abnormal movements except for psychomotor retardation.? Mostly cooperative with exam in no acute distress.? Speech was more spontaneous and decreased rate and volume.? Mood described as better, affect less subdued.? Thought process organized.? Thought content: Patient denied suicidal or homicidal ideation, there were no delusions reported or noted, he denied any auditory or visual hallucinations.? Attention and concentration were intact and memory appeared reliable but none were formally tested.? He is alert and oriented x3.? Insight and judgment were limited and impulse control is limited, intellectual ability limited versus impaired. Vitals/I&O/Wt Last Vital Signs Temp 98.3 F 08/06/21 06:00 Pulse 105 H 08/06/21 06:00 Resp 16 08/06/21 06:00 BP 141/75 08/06/21 06:00 Pulse Ox 97 08/06/21 06:00 Data NPU : 08/04/21 07:43 08/04/21 07:43 A&P Assessment and plan (1) Intellectual disability: Status: Acute (2) Depression: Status: Acute (3) History of schizophrenia: Status: Acute (4) Psychosis: Status: Acute (5) COVID-19: Status: Acute (6) Leukocytosis: Status: Acute (7) Drug overdose, intentional: Status: Acute (8) Chronic back pain: Status: Acute Plan This is a 31-year-old white male with a long history of mental health difficul ties with limited treatment who presents after an intentional ingestion with question of a suicide attempt who has not been engaged in treatment for some time possibly secondary to bereavement/loss of his mother who was a significant figure in his life with question of autism versus major depressive disorder with psychosis versus schizophrenia versus depression with cluster a personality disorder who was Covid positive. 1.? Continue current medication.? Patient was last taking Prozac 60 mg daily in 2018.? We will initiate Lexapro 10 mg p.o. every morning in the morning. 2.? Continue every 15 minute checks for safety. 3.? Encourage individual, group and milieu therapies. 4.? Encourage sober living treatment after discharge at the highest level of care to which he is willing to commit. 5.? We will work with treatment team Saturday starting to determine a safe and reasonable place for him to discharge as well as looking if we can assist in resumption of him having a guardian. Involuntary Hold Information 96 Hour Hold: 96 Hour Involuntary Admission: Yes 96 Hour Hold Ending Date: 08/07/21 96 Hour Hold Ending Time: 21:00 Attestations NPU Medical Necessity Statement*: Inpatient hospitalization is medically necessary and the clinically appropriate intervention at this time. We will monitor medication to make changes as indicated. Likely length of stay 1-3 days. 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
[2021-08-06] MEDS: escitalopram 10 mg Tablet PO (09:20)
[2021-08-06] MEDS: lisinopril 20 mg Tablet 40 MG PO (09:20)
[2021-08-06] MEDS: hydroCHLOROthiazide 25 mg Tablet 12.5 MG PO (09:20)
[2021-08-06 14:00] VITALS: BP 137/89; PULSE 104; RESP 18; TEMP 36.5; O2SAT 94
[2021-08-06 20:48] VITALS: BP 151/89; PULSE 107; RESP 17; TEMP 37.1; O2SAT 98
[2021-08-06] MEDS: acetaminophen 325 mg Tablet 650 MG PO (21:56)
[2021-08-07 06:00] VITALS: BP 138/83; PULSE 105; RESP 18; TEMP 36.7; O2SAT 97
[2021-08-07] MEDS: escitalopram 10 mg Tablet PO (10:26)
[2021-08-07] MEDS: lisinopril 20 mg Tablet 40 MG PO (10:26)
[2021-08-07] MEDS: hydroCHLOROthiazide 25 mg Tablet 12.5 MG PO (10:27)
--- NOTE | 2021-08-07 13:03 | NPU.GN ---
[facility] Group Topic: Whine Barrel Activity General Mood of Group: James did attend group today. He was social, good hygiene. He filled out the [facility] new patient paperwork. Client seems to have a cognitive delay.
[2021-08-07 14:00] VITALS: BP 119/72; PULSE 101; RESP 18; TEMP 36.9; O2SAT 100
--- NOTE | 2021-08-07 18:38 | P.NPUPN_ITS ---
Subjective NPU Subjective: Interval history: Patient presents today reporting that he is feeling better he was certainly more talkative and seeming less subdued. He was excited about the prospect of his aunt possibly assisting him in getting himself back on his feet. He seemed to have less of ideas about how he could get out of the right than he had been before. We discussed the likelihood of discharge tomorrow. Mental Status Exam MSE Comments: This a well-nourished well-developed white male with a fairly large forehead with hospital scrubs on and limited grooming and adequate eye contact.? No abnormal movements except for resolving psychomotor retardation.? Mostly cooperative with exam in no acute distress.? Speech was more spontaneous and more normal rate and volume.? Mood described as better, affect less subdued.? Thought process organized.? Thought content: Patient denied suicidal or homicidal ideation, there were no delusions reported or noted, he denied any auditory or visual hallucinations.? Attention and concentration were intact and memory appeared reliable but none were formally tested.? He is alert and oriented x3.? Insight and judgment were limited, but improving and impulse control is improving, intellectual ability limited. Vitals/I&O/Wt Last Vital Signs Temp 98.0 F 08/07/21 21:50 Pulse 107 H 08/07/21 21:50 Resp 20 H 08/07/21 21:50 BP 129/83 08/07/21 21:50 Pulse Ox 96 08/07/21 21:50 Data NPU : 08/04/21 07:43 08/04/21 07:43 A&P Assessment and plan (1) Intellectual disability: Status: Acute (2) Depression: Status: Acute (3) History of schizophrenia: Status: Acute (4) Psychosis: Status: Acute (5) COVID-19: Status: Acute (6) Leukocytosis: Status: Acute (7) Drug overdose, intentional: Status: Acute (8) Chronic back pain: Status: Acute Plan This is a 31-year-old white male with a long history of mental health difficu lties with limited treatment who presents after an intentional ingestion with question of a suicide attempt who has not been engaged in treatment for some time possibly secondary to bereavement/loss of his mother who was a significant figure in his life with question of autism versus major depressive disorder with psychosis versus schizophrenia versus depression with cluster a personality disorder who was Covid positive. 1.? Continue current medication.? Patient was last taking Prozac 60 mg daily in 2019.? We initiated Lexapro 10 mg p.o. every morning in the morning. 2.? Continue every 15 minute checks for safety. 3.? Encourage individual, group and milieu therapies. 4.? Encourage sober living treatment after discharge at the highest level of care to which he is willing to commit. 5.? We will work with treatment team Saturday starting to determine a safe and reasonable place for him to discharge as well as looking if we can assist in resumption of him having a guardian. Involuntary Hold Information 96 Hour Hold: 96 Hour Involuntary Admission: Yes 96 Hour Hold Ending Date: 08/07/21 96 Hour Hold Ending Time: 21:00 Attestations NPU Medical Necessity Statement*: Inpatient hospitalization is medically necessary and the clinically appropriate intervention at this time. We will monitor medication to make changes as indicated. Likely length of stay 1-2 days. Coding Level of Care Code Acute Hand Inspector for Comfort Fwd Diagnoses Intellectual disability F79 Depression F32.A History of schizophrenia Z86.59 Psychosis F29 COVID-19 U07.1 Leukocytosis D72.829 Drug overdose, intentional T50.902A Chronic back pain M54.9; G89.29
[2021-08-07] MEDS: acetaminophen 325 mg Tablet 650 MG PO (21:29)
[2021-08-07 21:50] VITALS: BP 129/83; PULSE 107; RESP 20; TEMP 36.7; O2SAT 96
[2021-08-08 06:00] VITALS: BP 132/78; PULSE 103; RESP 18; TEMP 36.9; O2SAT 96
[2021-08-08] MEDS: escitalopram 10 mg Tablet PO (09:41)
[2021-08-08] MEDS: lisinopril 20 mg Tablet 40 MG PO (09:42)
[2021-08-08] MEDS: hydroCHLOROthiazide 25 mg Tablet 12.5 MG PO (09:42)
--- NOTE | 2021-08-08 10:30 | W.PM.NPUDCS ---
Diagnoses at Discharge Discharge Diagnosis (1) Intellectual disability: Status: Acute (2) Depression: Status: Acute (3) History of schizophrenia: Status: Acute (4) Psychosis: Status: Acute (5) COVID-19: Status: Acute (6) Leukocytosis: Status: Acute (7) Drug overdose, intentional: Status: Acute (8) Chronic back pain: Status: Acute Reason for Visit Reason for Visit: OVERDOSE Brief History: History of Present Illness James Cyr is a 31 year old male who presented to the emergency department with the following report: Chief Complaint: Domonique Parr Stated Comp laint: OVERDOSE Ti me Seen by Provide r: 08/01/21 16:14? ? History of Present Illness:??? 31-year-old male presents emergency room after having taking 1050 mg ta blets of Benadryl around nine or 10 AM this morning. Vj cameron presents this af ternoon at 4 PM. Vj cameron said he intended to harm himself d ue to his chronic back pain issues. He is mildly tachy cardic but otherwi se resting comfort ably denies any pa in other than his chronic back pain which is somewhat better at this miguelito e. She not had any recent trauma or issues. He took th e pills with the i ntent of harming h imself. complain t: intentional ove rdose Substance Ingested :??? Diphenhydramine: S trength of Substan ce: 50 Number of P ills Ingested: 10 Total Dose: 500 ? ?? Intent: suicide at tempt? Context: In tentional Overdose : other (Chronic p ain issues)? Treat ments Prior to Arr ival: none He was evaluated in the emergency department with concerns for lethality/psychiatric consult was requested for determination of safety to be discharged.? Patient was somewhat lethargic during the interview and was ambivalent about whether the injection was an actual suicide attempt.? He never emphatically said that it was not he made comments like I do not think I was necessarily trying to kill myself. ? He described some issue of pain in his right shoulder and that he was not able to sleep and reported that he was trying to make sure he slept no matter what. ? Patient is positive for Covid and reporting that he was staying with some friends and that he was not sure where he was going if he was discharged because there were significant concerns about his stability.? He was a limited historian but reported that he was not sure what to do.? Eventually we were able to reach his sister.? She reports that she has not spoken to him for 7 months but gave the following history.? She reported that he is always been a odd and had difficulties with life in general.? She reports he hasnever had significant psychiatric treatment.? She reports that her mother had essentially given him a place to live and taken extremely good care of him given his psychological challenges but that she in the past few years and that [facility] Hospital Course Hospital Course He slowly acclimated to the individual, group and milieu therapies provided. Started Lexapro 10 mg p.o. qam and had improvement in his depression. We were able to assist him in getting connected with family for guardianship type issues. He had no stable housing. He showed significant improvement, and was able to contract for safety, outside of the hospital prior to discharge. During the hospitalization, patient had routine laboratory studies which were within normal limits except for few outliers. Additionally there was a general medical evaluation which was also within normal limits and revealed no new acute processes. Discharge Summary: At the time of discharge, he denied psychosis or lethality. Mood and anxiety were well managed. Patient endorsed a plan to avoid all drugs of abuse and follow-up with the aftercare recommendations of the treatment team. Patient was evaluated and deemed to be absent credible lethality, and had achieved the maximum benefit from an inpatient hospitalization, so was discharged. Involuntary Hold Information 96 Hour Hold: 96 Hour Involuntary Admission: Yes 96 Hour Hold Ending Date: 08/07/21 96 Hour Hold Ending Time: 21:00 Mental Status Exam MSE Comments: This a well-nourished well-developed white male with a fairly large forehead with hospital scrubs on and limited grooming and adequate eye contact.? No abnormal movements except for resolving psychomotor retardation.? Mostly cooperative with exam in no acute distress.? Speech was more spontaneous and more normal rate and volume.? Mood described as better, affect less subdued.? Thought process organized.? Thought content: Patient denied suicidal or homicidal ideation, there were no delusions reported or noted, he denied any auditory or visual hallucinations.? Attention and concentration were intact and memory appeared reliable but none were formally tested.? He is alert and oriented x3.? Insight and judgment were limited, but improving and impulse control is improving, intellectual ability limited. Discharge Data Studies Completed and Pending: Completed Studies During Hospitalization Category Date Time Status XR chest 1V kwabena ble [id number] Urgent Exams 08/01/21 16:25 Completed XR shoulder RT mi n 2V* [id number] Routin e Exams 08/02/21 13:47 Completed Radiology Impressions Chest X-Ray 08/01/21 16:25 IMPRESSION: No acute chest abnormality. Shoulder X-Ray 08/02/21 13:47 IMPRESSION: Mild osteoarthritis of the acromioclavicular joint. No acute abnormality. Laboratory Results WBC 10.6 10^3/uL (4.0 -10.0) H 08/04/21 07:43 RBC 5.28 10^6/uL (4.1 -5.3) 08/04/21 07:43 Hgb 14.7 g/dL (11.7-1 6.6) 08/04/21 07:43 Hct 46.5 % (42.0-52.0 ) 08/04/21 07:43 MCV 88.1 fl (80-94) 08/04/21 07:43 MCH 27.8 pg (28.0-34. 0) L 08/04/21 07:43 MCHC 31.6 g/dL (30.0-3 6.0) 08/04/21 07:43 RDW 12.8 % (12.1-15.1 ) 08/04/21 07:43 Plt Count 315 10^3/cmm (130 -400) 08/04/21 07:43 MPV 9.9 fL (7.4-10.4) 08/04/21 07:43 Neut % (Auto) 65.9 % 08/04/21 07:43 Lymph % (Auto) 24.6 % 08/04/21 07:43 Mccone % (Auto) 7.3 % 08/04/21 07:43 Eos % (Auto) 1.5 % 08/04/21 07:43 Baso % (Auto) 0.2 % 08/04/21 07:43 Neut # (Auto) 7.01 10^3/uL (1.8 -7.7) 08/04/21 07:43 Lymph # (Auto) 2.6 10^3/uL (0.8- 4.8) 08/04/21 07:43 Mccone # (Auto) 0.8 10^3/uL (0.2- 0.9) 08/04/21 07:43 Eos # (Auto) 0.2 10^3/uL (0.0- 0.8) 08/04/21 07:43 Baso # (Auto) 0.0 10^3/uL (0.0- 0.1) 08/04/21 07:43 Nucleated RBC % (a uto) 0 % 08/04/21 07:43 Nucleated RBCs # 0.0 /100WBC 08/04/21 07:43 Sodium 142 mmol/L (136-1 45) 08/04/21 07:43 Potassium 4.9 mmol/L (3.5-5 .1) 08/04/21 07:43 Chloride 105 mmol/L (98-10 7) 08/04/21 07:43 Carbon Dioxide 20 mmol/L (22-29) L 08/04/21 07:43 Anion Gap 21.9 (5-19) H 08/04/21 07:43 BUN 10 mg/dL (6-20) 08/04/21 07:43 Creatinine 0.8 mg/dL (0.7-1. 2) 08/04/21 07:43 GFR Calculation 114.3 mL/min (90- 130) 08/04/21 07:43 Glucose 117 mg/dL (65-115 ) H 08/04/21 07:43 Calculated Osmolal ity 294 mOsm/kg (285- 295) 08/04/21 07:43 Calcium 9.3 mg/dL (8.5-10 .5) 08/04/21 07:43 Total Bilirubin 0.4 mg/dL (0.15-1 .2) 08/01/21 15:57 AST 18 U/L (0-40) 08/01/21 15:57 ALT 18 U/L (0-41) 08/01/21 15:57 Alkaline Phosphata se 88 IU/L (40-130) 08/01/21 15:57 Total Protein 7.5 g/dL (6.6-8.7 ) 08/01/21 15:57 Albumin 4.6 g/dL (3.5-5.2 ) 08/01/21 15:57 Globulin 2.9 g/dL (1.3-4.6 ) 08/01/21 15:57 Urine Color Yellow (Yellow) 08/01/21 18:29 Urine Appearance Clear (CLEAR) 08/01/21 18:29 Urine pH 8 (5-7) H 08/01/21 18:29 Ur Specific Gravit y 1.015 (1.005-1.0 30) 08/01/21 18:29 Urine Protein Neg (Negative) 08/01/21 18:29 Urine Glucose (UA) Norm (Normal) 08/01/21 18:29 Urine Ketones 1+ (Negative) H 08/01/21 18:29 Urine Blood Neg (Negative) 08/01/21 18:29 Urine Nitrate Negative (Negati ve) 08/01/21 18:29 Urine Bilirubin Neg (Negative) 08/01/21 18:29 Prot Sulfosalicyli c Acd Negative (Negati ve) 08/01/21 18:29 Urine Urobilinogen Norm mg/dL (Negat pito) 08/01/21 18:29 Ur Leukocyte Sydni ase Negative (Negati ve) 08/01/21 18:29 Salicylates < 0.3 mg/dL (3-10 ) L 08/01/21 15:57 Urine Opiates Scre en Negative ng/mL (N egative) 08/01/21 18:29 Acetaminophen < 5.0 ug/mL (10-3 0) L 08/01/21 15:57 Ur Barbiturates Sc reen Negative ng/mL (N egative) 08/01/21 18:29 Ur Phencyclidine S crn Negative ng/mL (N egative) 08/01/21 18:29 Ur Amphetamines Sc reen Negative ng/mL (N egative) 08/01/21 18:29 U Benzodiazepines Scrn Negative ng/mL (N egative) 08/01/21 18:29 Urine Cocaine Scre en Negative ng/mL (N egative) 08/01/21 18:29 U Marijuana (THC) Screen Negative ng/mL (N egative) 08/01/21 18:29 Ethyl Alcohol < 10 mg/dL (0-10) 08/01/21 15:57 Coronavirus 229E ( PCR) Not detected (NO T DETECT) 08/02/21 03:17 SARS-CoV-2 (PCR) Detected (NOT DE TECT) A 08/02/21 03:17 Vitals: Last Vital Signs Temp 98.5 F 08/08/21 06:00 Pulse 103 H 08/08/21 06:00 Resp 18 08/08/21 06:00 BP 132/78 08/08/21 06:00 Pulse Ox 96 08/08/21 06:00 Discharge Plan Discharge Patient Disposition: Home Condition: Stable Prescriptions: New escitalopram oxalate 10 mg Tablet 10 mg PO DAILY 30 Days Qty: 30 1RF Continued lisinopril 40 mg tablet 40 mg PO DAILY 30 Days Qty: 30 1RF hydrochlorothiazide 12.5 mg tablet 12.5 mg PO DAILY 30 Days Qty: 30 1RF Discontinued meloxicam 7.5 mg tablet 7.5 mg PO DAILY 0RF Discharge Orders: Discharge Order (Routine); Ordered 08/08/21 Ordered By: Landon Roach Referrals: [facility] [Provider Group] (Please note: If you or someone you care for is experiencing a psychiatric emergency, please call the crisis hotline ([employer]) 24-hours a day, 7 days a week at [phone]) [facility] [Provider Group] (If you decide you would like to establish care at [facility] please call them at [phone]. You will need to do a walk in assessment to determine what services may benefit you. They can guide you on how to do this. ) [facility] [Outside] - 08/09/21 10:00 am (Polly Ajubeo phone assessment) [facility] [Outside] (If you decide you want to explore treatment at rehab facility please call. They have inpateint and outpatient treatment options.) Riley Woodruff MD [Physician] - 08/11/21 11:30 am (You are scheduled to see Dr Woodruff as a hospital follow up. Please also discuss with Dr Woodruff about referral to counselor/ therapist and ongoing muscle spasms. ) Discharge Diet: Regular Discharge Activity: Resume usual activity Patient Instructions: Back Pain, Depression, Escitalopram (By mouth) (Lexapro), Schizophrenia (DC), Help Prevent Suicide (GEN), Psychotic Disorder (DC), Opioid Safety Activity Restrictions/Additional Instructions: PLease reach out to facility in [place] that you mentioned and set up a virtual visit. Discharge Attestations NPU Time Spent in Discharge Care*: less than 30 min Specific Discharge Activities: Specific discharge activities: educating patient, discussing with field nurse case manager/social workers/dc planners, documenting/other paperwork and evaluating patient/reviewing data Coding Level of Care Code Acute Chg FW DC note Diagnoses Intellectual disability F79 Depression F32.A History of schizophrenia Z86.59 Psychosis F29 COVID-19 U07.1 Leukocytosis D72.829 Drug overdose, intentional T50.902A Chronic back pain M54.9; G89.29
[2021-08-08 10:57] VITALS: BP 132/78; PULSE 103; RESP 18; TEMP 36.9; O2SAT 96
[2021-08-08] MEDS: acetaminophen 325 mg Tablet 650 MG PO (12:07)
--- NOTE | 2021-08-08 12:39 | NPU.GN ---
[facility] Group Topic:Self Care General Mood of Group: James did attend group and participated . He was pleasant in group . Hygiene was ok.
== END 2021-08-08 12:52 | disposition home or self-care (01) | DRG 917 ==
LOC: ER 08-02 00:13 → ER IP 08-02 07:19 → NP 08-03 21:53
PROVIDERS: Family Medicine; Internal Medicine; Admitting Provider Internal Medicine; Emergency Provider Emergency Medicine; Visit Provider Psychiatry & Neurology Psychiatry
DX: T45.0X2A Poisoning by antiallergic and antiemetic drugs, intentional self-harm, initial encounter (principal); U07.1 COVID-19; F84.0 Autistic disorder; G89.29 Other chronic pain; M54.9 Dorsalgia, unspecified; F25.1 Schizoaffective disorder, depressive type; M19.011 Primary osteoarthritis, right shoulder; F79 Unspecified intellectual disabilities; Z63.4 Disappearance and death of family member; F60.89 Other specific personality disorders
CPT/HCPCS: 36415; 71045; 73030; 80048; 80053; 80306; 80307; 81003; 85025; 87635; 93005; 96372; 97150; 97165; J1650; J7030

== ENCOUNTER 2021-12-29 16:00 | Outpatient (CLI) | payer MEDICAID, SELFPAY ==
--- NOTE | 2021-12-29 16:07 | MR_ITS ---
WS: [id number] MRI CERVICAL SPINE NONCONTRAST HISTORY: Chronic neck pain into RIGHT arm. COMPARISON: None available. Technique: Multiplanar, multisequence noncontrast imaging of the cervical spine. Mild straightening of the normal cervical lordosis. Signal within the cervical cord is normal. Visualized posterior fossa is unremarkable. Craniocervical junction, C1 and C2 relationship, odontoid process and soft tissues are normal. C2-C3: Very small LEFT foraminal osteophyte without stenosis. C3-C4: Normal. C4-C5: Very minimal disc bulging. No stenosis. C5-C6: Minimal disc bulging and osteophytic ridging. No stenosis. C6-C7: Mild annular disc bulging and osteophytic ridging. No stenosis. C7-T1: Normal. Paraspinal soft tissue are normal. MR/MR cervical spin wo con* [id number] IMPRESSION: 1. No significant central or foraminal stenosis or disc protrusions. 2. Very minimal disc bulging and osteophytic ridging at C5-6 and C6-7. 3. Very small LEFT foraminal osteophyte at C2-3 without stenosis.
== END 2021-12-29 16:01 | disposition home or self-care (01) ==
PROVIDERS: Visit Provider Family Medicine
DX: M54.12 Radiculopathy, cervical region (principal)
CPT/HCPCS: 72141

== ENCOUNTER → 2022-02-20 13:06 | Outpatient (BNVA) | payer MEDICAID, SELFPAY | PROVIDERS: Visit Provider Physician Assistant | DX: M25.511 Pain in right shoulder (principal); M47.812 Spondylosis without myelopathy or radiculopathy, cervical region | CPT/HCPCS: 20610; 72050; 99203; J1100; J2795 ==

== ENCOUNTER → 2022-05-31 12:33 | Outpatient (BNVA) | payer MEDICAID, SELFPAY | PROVIDERS: Visit Provider Physician Assistant | DX: M75.41 Impingement syndrome of right shoulder (principal) | CPT/HCPCS: 20610; 99213; J1100; J2795 ==

== ENCOUNTER 2022-07-19 15:10 | Outpatient (CLI) | payer MEDICAID, SELFPAY ==
--- NOTE | 2022-07-19 15:15 | MR_ITS ---
WS: [id number] MRI RIGHT SHOULDER NONCONTRAST TECHNIQUE: Sagittal T2, coronal T1, T2 and proton density imaging. Axial gradient PDE imaging. CLINICAL INFORMATION: pain COMPARISON: None. FINDINGS: Mild degenerative arthritis AC joint with mild fluid and edema. Mild downsloping acromion. Slight sub acromial spurring. Mild narrowing of the subacromial space with slight impingement on the distal supr aspinatus. Normal supraspinatus. Normal infraspinatus. Normal teres minor. Normal subscapularis. Normal biceps tendon in the bicipital groove. Normal intra-articular biceps tendon. Glenoid labrum ap pears grossly normal. Normal bone marrow signal in the glenoid and humerus. Normal rotator interval. Normal biceps labral anchor. MR/MR shoulder RT wo con* [id number] IMPRESSION: 1. Mild degenerative arthritis AC joint with mild fluid and edema. Mild downsl oping of the acromion with slight impingement on the distal supraspinatus with slight subacromial spurring. 2. Rotator cuff is normal. 3. Normal biceps tendon. 4. No other suspicious findings.
== END 2022-07-19 15:11 | disposition home or self-care (01) ==
PROVIDERS: PCP Family Medicine; Visit Provider Physician Assistant
DX: M19.011 Primary osteoarthritis, right shoulder (principal)
CPT/HCPCS: 73221

== ENCOUNTER → 2022-08-14 10:56 | Outpatient (BNVA) | payer MEDICAID, SELFPAY | PROVIDERS: PCP Family Medicine; Visit Provider Physician Assistant | DX: M75.41 Impingement syndrome of right shoulder (principal) | CPT/HCPCS: 99213 ==

== ENCOUNTER → 2022-09-04 15:42 | Outpatient (BNVA) | payer MEDICAID, SELFPAY | PROVIDERS: PCP Family Medicine; Visit Provider Surgery | DX: K64.9 Unspecified hemorrhoids (principal) | CPT/HCPCS: 99203 ==

== ENCOUNTER → 2022-09-25 13:03 | Outpatient (BNVA) | payer MEDICAID, SELFPAY | PROVIDERS: PCP Family Medicine; Visit Provider Physician Assistant | DX: M75.41 Impingement syndrome of right shoulder (principal) | CPT/HCPCS: 99213 ==

== ENCOUNTER → 2022-10-09 10:05 | Outpatient (BNVA) | payer MEDICAID, SELFPAY | PROVIDERS: PCP Family Medicine; Visit Provider Surgery | DX: K64.9 Unspecified hemorrhoids (principal) | CPT/HCPCS: 99213 ==

== ENCOUNTER 2022-10-25 07:48 | Day surgery (SDC) | payer MEDICAID, SELFPAY ==
[2022-10-24 12:45] VITALS: BMI 28.1
[2022-10-25] VITALS (9 sets, daily range): BP systolic 92–133; BP diastolic 50–85; PULSE 65–97; RESP 16–20; TEMP 36.1–36.3; O2SAT 97–100
--- NOTE | 2022-10-25 08:04 | W.PM.OPSUD ---
Surgery/Procedure H&P Update DATE OF PROCEDURE: October 25, 2022 DATE H&P PERFORMED: 10/09/22 H&P UPDATE INFORMATION: I have reviewed H&P completed within last 30 days, I have examined patient prior to procedure and No changes to prior documentation PLANNED PROCEDURE: Operation Date: 10/25/22 09:30 Proposed Procedures p [id number] hemorrhoidectomy K64.9(Not Applicable) - Zev Cummings,
[2022-10-25] MEDS: sodium chloride 0.9% 1,000 ML 30 ML IV (08:36)
--- NOTE | 2022-10-25 08:47 | PC.NURSE ---
Cepacol lozenge not given per Dr. Monk
[2022-10-25 09:32] LABS: Blood Urea Nitrogen 10 mg/dL (6-20); Calcium 8.7 mg/dL (8.5-10.5); Carbon Dioxide 22 mmol/L (22-29); Chloride 99 mmol/L (98-107); Glomerular Filtration Rate 87.7 mL/min (90-130); Glucose 105 mg/dL (65-115); Osmolality Calculated 277 mOsm/kg (285-295); Sodium 134 mmol/L (136-145)
--- NOTE | 2022-10-25 09:34 | ANES.PREANE2 ---
Pre-Anesthetic Assessment Height/Weight: Height 1.73 m Weight 83.915 kg Temp Pulse Resp BP Pulse Ox O2 Del Method 97.3 F L 97 18 133/85 99 Room Air 10/25/22 08:06 10/25/22 08:06 10/25/22 08:06 10/25/22 08:06 10/25/22 08:06 10/25/22 08:30 Preop Diagnosis: Hemorrhoids Operation Date: 10/25/22 09:30 Proposed Procedures p [id number] hemorrhoidectomy K64.9(Not Applicable) - Zev Cummings DO Familial anesthetic complications: none Was Beta Bud taken within 24 hours: N/A Was Clonidine taken within 24 hours: N/A Last intake: Intake Last Liquid Date 10/24/22 Last Liquid Time 22:00 Last Solid Date 10/23/22 Last Solid Time 23:00 Social No alcohol and No tobacco Exam alert, oriented x 3, clear to auscultation bilaterally and regular rate & rhythm Airway Submandibular: within normal limits Cervical ROM: within normal limits Mallampati: Class II Dentition: chipped Musc/skel Lower Back Pain Neuropsych Schizophrenia, Psychosis Anesthetic Plan ASA status: 2 Anesthesia: General Medications/Allergies Home Medications Medication Instructions Recorded Confirmed Last Taken Type hydrochlorothiazide 12.5 mg tablet 12.5 mg PO DAILY 30 days #30 tabs 08/08/21 10/24/22 10/25/22 Rx 12.5 mg diclofenac sodium 50 mg 50 mg PO BID Joint pains #60 tabs 02/20/22 10/24/22 10/25/22 Rx tablet,delayed release 50 mg meloxicam 7.5 mg tablet 7.5 mg PO DAILY 05/31/22 10/24/22 10/25/22 History 7.5 mg chlorthalidone 25 mg tablet 25 mg PO 1XD 10/24/22 10/24/22 10/25/22 History 25 mg Allergies Allergy/AdvReac Type Severity Reaction Status Date / Time Sulfa (Sulfonamide Allergy Intermediate Unknown Verified 10/24/22 12:35 Antibiotics) Current Medications Generic Name Dose Route Start Last Admin Trade Name Freq PRN Reason Stop Dose Admin Sodium Chloride 1,000 mls @ 30 mls/hr 10/25/22 08:00 10/25/22 08:36 Sodium Chloride 0.9% IV 10/26/22 07:59 30 mls/hr .Q24H JOEL Administration PFSH Anesthesia Medical History Chronic back pain COVID-19 Family History Father Hypertension Mother Hypertension Social History Smoking and tobacco status: never smoked Substance/Drug Use: unknown Data Anesthesia 10/25/22 08:55 BMP 10/25/22 10/25/22 08:23 08:55 Sodium Cancelled Potassium Cancelled Chloride Cancelled 99 Carbon Dioxide Cancelled 22 BUN Cancelled 10 Creatinine Cancelled 1.0 Glucose Cancelled 105 Calcium Cancelled 8.7 Cardiac Studies: No Data to Display
[2022-10-25] MEDS: ceFAZolin 2,000 MG in sodium chloride 0.9% (plus) 50 ML 100 MG IV (09:43)
[2022-10-25 09:48] LABS: Anion Gap 16.3 (5-19); Potassium 3.3 mmol/L (3.5-5.1)
[2022-10-25] MEDS: thrombin 5,000 unit SDV 5000 UNIT XX (10:29)
--- NOTE | 2022-10-25 10:39 | P.OP_ITS ---
Operative Report Date of procedure: October 25, 2022 Pre-op diagnosis: Preop Diagnosis Hemorrhoids Post-op diagnosis: same Procedure done: Hemorrhoidectomy Implants: Thrombin soaked Gelfoam into anus Specimens removed/disposition: 3 hemorrhoidal pillars Surgeon: Dr. Zev Cummings DO Anesthesia: General Estimated blood loss (mL): 5 Complications: None apparent Brief History: Is a very pleasant 32-year-old gentleman who has been suffering with internal and external hemorrhoids. Hemorrhoidectomy was indicated. The risk and benefits were explained and documented. Procedure: Patient was well in the operative room and general endotracheal ovation was achieved by the department anesthesia. He was then placed into the prone yovani kknife position. The anus was inspected prepped and draped in usual sterile fashion. A timeout was performed. All present were in agreement. Retractor was used to examine the anus and he had sizable hemorrhoid at the right posterior pillar, a moderate-sized hemorrhoid at the right anterior pillar and a small hemorrhoid at the left lateral pillar. All 3 pillars were taken in the same manner. The exterior most edge of the hemorrhoid was slightly ligated with electrocautery. The harmonic scalpel was then used to excise all 3 hemorrhoidal pillars. There was minimal bleeding. Thrombin-soaked Gelfoam was then placed into the anus. Sterile bandage was applied. Patient tolerated procedure well.
--- NOTE | 2022-10-25 15:29 | ANE.PACU2 ---
Inpatient post-anesthesia follow up: Airway intact: Yes Vital signs: Temperature 97.0 F Pulse Rate 65 Respiratory Rate 18 Blood Pressure 97/50 Pulse Oximetry 100 Oxygen Delivery Me thod Room Air Oxygen Flow Rate 7 Fraction of Inspir ed Oxygen Hydration adequate: Yes Nausea and vomiting: No Pain level: 3 Mental status: Baseline
== END 2022-10-25 12:00 | disposition home or self-care (01) ==
PROVIDERS: PCP Family Medicine; Visit Provider Surgery
PROC: (CPT 46260; principal; 2022-10-25 09:20)
DX: K64.9 Unspecified hemorrhoids (principal); F20.9 Schizophrenia, unspecified; M54.50 Low back pain, unspecified; G89.29 Other chronic pain
CPT/HCPCS: 46260; 80048; 88304; C9290; J0131; J0690; J1100; J1885; J2250; J2370; J2405; J2704; J2710; J3010; J3490; J7030

== ENCOUNTER → 2022-11-13 09:58 | Outpatient (BNVA) | payer MEDICAID, SELFPAY | PROVIDERS: PCP Family Medicine; Visit Provider Surgery | DX: Z98.890 Other specified postprocedural states (principal) | CPT/HCPCS: 99024 ==

== ENCOUNTER → 2023-01-15 15:53 | Outpatient (BNVA) | payer MEDICAID, SELFPAY | PROVIDERS: PCP Nurse Practitioner Family; Visit Provider Nurse Practitioner Family | DX: R07.9 Chest pain, unspecified (principal) | CPT/HCPCS: 80053; 80061; 83735; 84443; 85025; 93005 ==

== ENCOUNTER → 2023-03-07 13:26 | Outpatient (BNVA) | payer MEDICAID, SELFPAY | PROVIDERS: PCP Nurse Practitioner Family; Visit Provider Physician Assistant | DX: M75.41 Impingement syndrome of right shoulder (principal); M47.812 Spondylosis without myelopathy or radiculopathy, cervical region | CPT/HCPCS: 73030; 99213 ==

== ENCOUNTER 2023-04-04 13:36 | Outpatient (CLI) | payer MEDICAID, SELFPAY ==
--- NOTE | 2023-04-04 | MR_ITS ---
WS: [id number] MRI CERVICAL SPINE NONCONTRAST HISTORY: neck pain, pain into RIGHT shoulder. COMPARISON: 12/29/2021 Technique: Multiplanar, multisequence noncontrast imaging of the cervical spine. Very mild straightening of the normal cervical lordosis. Signal within the cervical cord is normal. There does appear to be a small cyst retrocerebellar arach noid cyst. Craniocervical junction, C1 and C2 relationship, odontoid process and soft tissues are nor mal. C2-C3: Normal. C3-C4: Normal. C4-C5: Very shallow central disc protrusion contacts the ventral thecal sac. No displacement. Similar to the prior study. C5-C6: Mild annular disc bulge with a tiny central disc protrusion. Near complete effacement of CSF. No cord contact. C6-C7: Normal. C7-T1: Normal. Paraspinal soft tissue are normal. IMPRESSION: 1. Shallow central disc protrusions at C4-5 and C5-6. The C4-5 disc protrusion slightly contacts the ventral thecal sac. 2. No cord myelomalacia. No high-grade central or foraminal stenosis.
== END 2023-04-04 13:37 | disposition home or self-care (01) ==
LOC: RAD 13:36
PROVIDERS: PCP Nurse Practitioner Family; Visit Provider Physician Assistant
DX: M50.90 Cervical disc disorder, unspecified, unspecified cervical region (principal); M50.221 Other cervical disc displacement at C4-C5 level; I10 Essential (primary) hypertension; R07.9 Chest pain, unspecified
CPT/HCPCS: 72141; 99203

== ENCOUNTER 2023-04-18 11:29 | Outpatient (CLI) | payer MEDICAID, SELFPAY ==
--- NOTE | 2023-04-18 12:02 | ECG_ITS ---
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 Interpretive Statements NAME OF STUDY: TREADMILL STRESS TEST INDICATION: Chest Pain Baseline blood pressure of 133/84 mm Hg, heart rate of 78 beats per minute. EKG showed sinus rhythm, right axis deviation with right ventricular conduction delay. ??? The patient exercised for 9 minutes on a standard Arpan protocol. Patient attained a maximum heart rate of 166 beats per minute(87% of the maximum predicted heart rate) with a blood pressure at the peak exercise of 180/87 mm Hg. The EKG at the peak exercise revealed sinus tachycardia with no significant ST-T wave changes. Patient did not have any chest pain or any significant arrhythmis with the exercise??? During the recovery phase, there were no new changes. ??? Blood pressure at the end of the recovery phase was 159/79 mm Hg with a heart rate of 108 beats per minute. ??? CONCLUSION: 1. Normal EKG response to treadmill exercise. 2. No exercise-induced chest pain or cardiac arrhythmia. 3. Excellent exercise tolerance, attained a maximum of 10.2 METs. 4. Baseline normal blood pressure with normal response to exercise. Electronically Signed On 04-22-2023 12:49:22 CDT by Dolores Ortega M.D. [id number]
[2023-04-18 12:03] VITALS: BMI 25.5
[2023-04-18 12:27] VITALS: BP 159/78; PULSE 96
== END 2023-04-18 11:30 | disposition home or self-care (01) ==
LOC: CDL 11:30
PROVIDERS: PCP Nurse Practitioner Family; Visit Provider Internal Medicine Cardiovascular Disease
DX: R07.9 Chest pain, unspecified (principal)
CPT/HCPCS: 93017

== ENCOUNTER → 2023-05-21 09:36 | Outpatient (BNVA) | payer MEDICAID, SELFPAY | PROVIDERS: PCP Nurse Practitioner Family; Referring Provider Nurse Practitioner Family; Visit Provider Nurse Practitioner Family | DX: L21.8 Other seborrheic dermatitis (principal); D22.39 Melanocytic nevi of other parts of face; L81.4 Other melanin hyperpigmentation; L70.0 Acne vulgaris; L85.8 Other specified epidermal thickening | CPT/HCPCS: 99204 ==

== ENCOUNTER → 2023-11-26 10:43 | Outpatient (BNVA) | payer MEDICAID, SELFPAY | PROVIDERS: PCP Nurse Practitioner Family; Visit Provider Orthopaedic Surgery | DX: M47.22 Other spondylosis with radiculopathy, cervical region (principal); M54.2 Cervicalgia | CPT/HCPCS: 72050; 99214 ==

== ENCOUNTER → 2024-01-07 08:16 | Outpatient (BNVA) | payer MEDICAID, SELFPAY | PROVIDERS: PCP Nurse Practitioner Family; Visit Provider Student in an Organized Health Care Education/Training Program | DX: M75.41 Impingement syndrome of right shoulder (principal); M75.21 Bicipital tendinitis, right shoulder | CPT/HCPCS: 73030; 99213 ==

== ENCOUNTER → 2024-05-18 15:17 | Outpatient (BNVA) | payer MEDICAID, SELFPAY | PROVIDERS: PCP Nurse Practitioner Family; Visit Provider Nurse Practitioner Family | DX: I10 Essential (primary) hypertension (principal) | CPT/HCPCS: 80053; 80061; 84443; 85025 ==

== ENCOUNTER → 2024-05-22 08:52 | Outpatient (BNVA) | payer MEDICAID, SELFPAY | PROVIDERS: PCP Nurse Practitioner Family; Visit Provider Nurse Practitioner Family | DX: L21.8 Other seborrheic dermatitis (principal); D22.39 Melanocytic nevi of other parts of face; L81.4 Other melanin hyperpigmentation; L57.8 Other skin changes due to chronic exposure to nonionizing radiation | CPT/HCPCS: 99213 ==

== ENCOUNTER → 2024-06-01 09:00 | Outpatient (BNVA) | payer MEDICAID, SELFPAY | PROVIDERS: PCP Nurse Practitioner Family; Visit Provider Surgery | DX: K92.2 Gastrointestinal hemorrhage, unspecified (principal); Z98.890 Other specified postprocedural states | CPT/HCPCS: 99214 ==

== ENCOUNTER → 2024-06-05 08:58 | Outpatient (BNVA) | payer MEDICAID, SELFPAY | PROVIDERS: PCP Nurse Practitioner Family; Visit Provider Student in an Organized Health Care Education/Training Program | DX: M75.21 Bicipital tendinitis, right shoulder (principal); Z71.89 Other specified counseling | CPT/HCPCS: 20610; 77002; J3301 ==

== ENCOUNTER 2024-06-17 06:56 | Day surgery (SDC) | payer MEDICAID, SELFPAY ==
[2024-06-17 07:07] VITALS: BP 158/114; PULSE 88; RESP 18; TEMP 36.4; O2SAT 94; BMI 27.5
[2024-06-17] MEDS: sodium chloride 0.9% 500 ML 15 ML IV (07:12)
--- NOTE | 2024-06-17 07:14 | P.ANESASSM_ITS ---
Pre-Anesthetic Assessment Height/Weight: Height 1.78 m Weight 87.09 kg Temp Pulse Resp BP Pulse Ox O2 Del Method 97.6 F 88 18 158/114 94 Room Air 06/17/24 07:07 06/17/24 07:07 06/17/24 07:07 06/17/24 07:07 06/17/24 07:07 06/17/24 07:07 Operation Date: 06/17/24 08:00 Proposed Procedures p EGD 76549, 91434, G0105, K92.2(Not Applicable) - Zev Cummings DO s Colonoscopy(Not Applicable) - Zev Cummings DO Familial anesthetic complications: None Was Beta Bud taken within 24 hours: N/A Was Clonidine taken within 24 hours: N/A Last intake: Intake Last Liquid Date 06/16/24 Last Liquid Time 23:00 Last Solid Date 06/15/24 Last Solid Time 18:00 Social No alcohol and No tobacco Exam alert, oriented x 3, clear to auscultation bilaterally and regular rate & rhythm Airway Mallampati: Class I Dentition: other (missing) CV/HEM Hypertension Anesthetic Plan ASA status: 2 Anesthesia: MAC Risk of > 500 ml blood loss (7ml/kg in children): No Medications/Allergies Home Medications Medication Instructions Recorded Confirmed Last Taken Type hydrocortisone 2.5 % topical cream 1 applic MI QID PRN hemorrhoids 10 06/01/24 06/15/24 06/16/24 Rx with perineal applicator days #30 grams (Anusol-HC) losartan 50 mg tablet 50 mg PO DAILY 06/15/24 06/15/24 06/16/24 History Allergies Allergy/AdvReac Type Severity Reaction Status Date / Time Sulfa (Sulfonamide Allergy Intermediate Unknown Verified 06/05/24 07:01 Antibiotics) [facility] Anesthesia Medical History Hypertension COVID-19 Chronic back pain Surgical History History of hemorrhoidectomy Family History Father Hypertension Mother Hypertension Social History Smoking and tobacco/nicotine status: never used tobacco/nicotine Alcohol intake: current Alcohol intake frequency: holidays/special occasions only Substance/Drug Use: never Data Anesthesia Cardiac Studies: No Data to Display
--- NOTE | 2024-06-17 08:09 | W.PM.OPSUD ---
Surgery/Procedure H&P Update DATE OF PROCEDURE: June 17, 2024 DATE H&P PERFORMED: 06/01/24 H&P UPDATE INFORMATION: I have reviewed H&P completed within last 30 days, I have examined patient prior to procedure and No changes to prior documentation PLANNED PROCEDURE: Operation Date: 06/17/24 08:00 Proposed Procedures p EGD 51535, 55759, G0105, K92.2(Not Applicable) - DO sid Reinoso Colonoscopy(Not Applicable) - Zev Cummings DO
[2024-06-17 08:36] VITALS: BP 130/68; PULSE 75; RESP 18; TEMP 36.1; O2SAT 96
[2024-06-17 08:55] VITALS: BP 148/91; PULSE 69; RESP 16; O2SAT 99
--- NOTE | 2024-06-17 09:00 | ANE.PACU2 ---
Inpatient post-anesthesia follow up: Airway intact: Yes Vital signs: Temperature 97.0 F Pulse Rate 69 Respiratory Rate 16 Blood Pressure 148/91 Pulse Oximetry 99 Oxygen Delivery Me thod Room Air Oxygen Flow Rate Fraction of Inspir ed Oxygen Hydration adequate: Yes Nausea and vomiting: No Pain level: 1 Mental status: Baseline
== END 2024-06-17 09:01 | disposition home or self-care (01) ==
PROVIDERS: PCP Nurse Practitioner Family; Visit Provider Surgery
PROC: 0DJ08ZZ Inspection of Upper Intestinal Tract, Via Natural or Artificial Opening Endoscopic (ICD-10-PCS; CPT 43235; principal; 2024-06-17 08:00)
PROC: 0DJD8ZZ Inspection of Lower Intestinal Tract, Via Natural or Artificial Opening Endoscopic (ICD-10-PCS; CPT 45378; 2024-06-17 08:00)
DX: K92.2 Gastrointestinal hemorrhage, unspecified (principal); K62.89 Other specified diseases of anus and rectum; K60.0 Acute anal fissure; I10 Essential (primary) hypertension
CPT/HCPCS: 43239; 45380; 88305; J2704; J3490; J7040

== ENCOUNTER → 2024-07-28 15:10 | Outpatient (BNVA) | payer MEDICAID, SELFPAY | PROVIDERS: PCP Nurse Practitioner Family; Visit Provider Student in an Organized Health Care Education/Training Program | DX: M75.41 Impingement syndrome of right shoulder (principal); M75.21 Bicipital tendinitis, right shoulder; M25.511 Pain in right shoulder | CPT/HCPCS: 99213 ==

== ENCOUNTER 2024-09-28 08:02 | Outpatient (CLI) | payer MEDICAID, SELFPAY ==
--- NOTE | 2024-09-28 08:04 | IR_ITS ---
WS: [id number] SHOULDER ARTHROGRAM RIGHT Fluoroscopic guided right shoulder arthrogram CLINICAL INFORMATION: RIGHT SHOULDER INJURY PROCEDURE: The procedure including risks, benefits and complications were discussed with the patient, who agreed to proceed. Using sterile technique, the patient was prepped and draped in the usual sterile fashion. After 1% lidocaine injection using fluoroscopic guidance, a 22-gauge spinal needle was advanced into the glenohumeral joint. Approximately 13 ml of a solution containing 10 ml normal saline, 10 ml Omnipaque 240, and 0.1 ml gadolinium was administered. No immediate complications. FLUOROSCOPY TIME: 0min [id number] # of spot films: 3 IR/IR arthrogram shoulderRT [id number] IMPRESSION: Uncomplicated fluoroscopic-guided right shoulder arthrogram. MRI to follow.
--- NOTE | 2024-09-28 08:06 | MR_ITS ---
WS: [id number] EXAMINATION: MR shoulder RT wo/w con [id number] ORDER DATE: 09/28/2024 8:28 AM COMPARISON: 07/19/2022 HISTORY: R SHOULDER INJURY/CUFF IMPRINGEMENT/BICEPS LABRAL TEAR CONTRAST: Intra-articular TECHNIQUE: Prearthrogram images coronal T1, coronal PD, coronal T2 fat-sat. Sagittal T2 fat-sat. Sagittal PD fat-sat. Axial T2 FSE and PD fat-sat. RIGHT shoulder arthrogram post intra-articular administration of gadolinium mixture. Coronal T1 axial and T1 sagittal T1 images with fat saturation technique. FINDINGS: Moderate degenerative arthritis AC joint with fluid and edema. Mild downsloping the acromion with subacromial spurring. Mild narrowing of the subacromial space with impingement distal supraspinatus. Normal supraspinatus and infraspinatus. Normal teres minor. Subscapularis tendon appears intact. Biceps tendon appears intact within the bicipital groove. Intra- articular biceps tendon appears intact. Normal bone marrow signal in the humerus and glenoid. Post arthrogram imaging demonstrates biceps tendon intact within the bicipital groove. No visualized acute labral tears. Normal. Normal-appearing biceps labral anchor. Intra-articular biceps tendon appears intact. MR/MR shoulder RT wo/w con [id number] IMPRESSION: 1. No acute appearing labral tears. Suspected [place] type complex glenoid vari ant. Middle glenohumeral ligament appears intact. 2. Rotator cuff is intact. 3. Moderate degenerative arthritis AC joint fluid and edema. 4. Slight impingement on the distal supraspinatus with subacromial spurring.
[2024-09-28] MEDS: gadobenate dimeglumine 20 mL vial IV (09:59)
[2024-09-28] MEDS: iohexol 240 mg/mL 50 mL Btl 20 ML INTRA-ARTI (10:03)
== END 2024-09-28 08:03 | disposition home or self-care (01) ==
PROVIDERS: PCP Nurse Practitioner Family; Visit Provider Student in an Organized Health Care Education/Training Program
DX: M75.41 Impingement syndrome of right shoulder (principal); R93.6 Abnormal findings on diagnostic imaging of limbs; M19.011 Primary osteoarthritis, right shoulder; M75.81 Other shoulder lesions, right shoulder
CPT/HCPCS: 23350; 73223; 77002; J9999

== ENCOUNTER → 2024-11-11 08:14 | Outpatient (BNVA) | payer MEDICAID, SELFPAY | PROVIDERS: PCP Nurse Practitioner Family; Visit Provider Student in an Organized Health Care Education/Training Program | DX: M75.41 Impingement syndrome of right shoulder (principal); M19.011 Primary osteoarthritis, right shoulder | CPT/HCPCS: 99214 ==

== ENCOUNTER → 2024-12-08 11:55 | Outpatient (BNVA) | payer MEDICAID, SELFPAY | PROVIDERS: PCP Nurse Practitioner Family; Visit Provider Nurse Practitioner Family | DX: R19.7 Diarrhea, unspecified (principal) | CPT/HCPCS: 87045; 87427; 87449; 87493 ==

== ENCOUNTER → 2024-12-21 13:34 | Outpatient (BNVA) | payer MEDICAID, SELFPAY | PROVIDERS: PCP Nurse Practitioner Family; Visit Provider Nurse Practitioner Family | DX: I10 Essential (primary) hypertension (principal); L21.8 Other seborrheic dermatitis; D22.39 Melanocytic nevi of other parts of face; L81.4 Other melanin hyperpigmentation; L57.8 Other skin changes due to chronic exposure to nonionizing radiation; D22.4 Melanocytic nevi of scalp and neck | CPT/HCPCS: 80053; 85025; 99213 ==

== ENCOUNTER 2024-12-24 06:21 | Day surgery (SDC) | payer MEDICAID, SELFPAY ==
[2024-12-24] VITALS (10 sets, daily range): BP systolic 137–153; BP diastolic 89–100; PULSE 74–98; RESP 15–18; TEMP 36.1–36.4; O2SAT 96–100; BMI 26.2
--- NOTE | 2024-12-24 07:04 | W.PM.OPSFHP ---
Same Day Surgery H&P Indication for Procedure/HPI DATE OF PROCEDURE: December 24, 2024 CHIEF COMPLAINT/INDICATIONFOR SURGICAL PROCEDURE: Left shoulder subacromial impingement, AC joint arthritis PREOP DIAGNOSIS: Left shoulder subacromial impingement, AC joint arthritis PLANNED PROCEDURE: Operation Date: 12/24/24 07:40 Proposed Procedures p Shoulder Arthroscopy(Right) - Shiva Mobley DO s Subacromial Decompression(Right) - Shiva Mobley DO s AC Joint Resection(Right) - Shiva Mobley DO Medications/Allergies* Allergies/Adverse Reactions Allergy/AdvReac Type Severity Reaction Status Date / Time Sulfa (Sulfonamide Allergy Intermediate Unknown Verified 12/24/24 06:41 Antibiotics) Pertinent History/Comorbid Conditions* Medical History (Updated 11/15/24 @ 21:18 by Shiva Mobley DO) Hypertension COVID-19 Chronic back pain Surgical History (Updated 11/13/22 @ 10:42 by Zev Cummings DO) History of hemorrhoidectomy Family History (Updated 10/09/22 @ 10:16 by NEETA Estrada) Hypertension Father Mother Social History Smoking and tobacco/nicotine status: never used tobacco/nicotine Alcohol intake: current Alcohol intake frequency: holidays/special occasions only Substance/Drug Use: never Pertinent Exam Findings alert, oriented x 3, operative site marked and procedure specific exam findings Please refer to detailed orthopedic examination on 11/11/2024 listed below: Right Shoulder Exam: ROM: Pain on end ranges of motion secondary to pain and discomfort TTP most pronounced tenderness palpation over the anterior aspect of the shoulder over the bicipital groove and anterior shoulder joint mild lateral tenderness palpation and posterior tenderness to palpation Internal Rotation 5 out of 5 with elbows at the side External Rotation 5 out of 5 with elbows at the side O'Briens: Positive Jobes: Positive Bey Impingement: Positive Speeds Test: Positive Crossover/Neers test: Positive with tenderness over AC joint Recommendations Risks and benefits of procedure reviewed and Patient/family agree to proceed Surgery/Procedure today Other Plans: Plan to proceed to the OR today for right shoulder diagnostic and surgical arthroscopy with subacromial decompression and AC joint resection. Patient understands incidence of procedure, the risk benefits complication alternatives to surgery and through shared decision making patient like to proceed with surgical intervention. All questions answered at this time. Coding Level of Care Code Acute Code for Dawna Sara
--- NOTE | 2024-12-24 07:23 | P.ANESASSM_ITS ---
Pre-Anesthetic Assessment Height/Weight: Height 1.75 m Weight 80.739 kg O2 Del Method Room Air 12/24/24 06:33 Preop Diagnosis: Left shoulder subacromial impingement, AC joint arthritis Operation Date: 12/24/24 07:40 Proposed Procedures p Shoulder Arthroscopy(Right) - Shiva Meriwether, DO s Subacromial Decompression(Right) - Shiva Meriwether, DO s AC Joint Resection(Right) - Shiva Meriwether, DO Familial anesthetic complications: None Was Beta Bud taken within 24 hours: N/A Was Clonidine taken within 24 hours: N/A Last intake: Intake Last Liquid Date 12/23/24 Last Liquid Time 22:30 Last Solid Date 12/23/24 Last Solid Time 17:00 Social No alcohol and No tobacco Exam alert, oriented x 3, clear to auscultation bilaterally and regular rate & rhythm Airway Mallampati: Class II Dentition: chipped CV/HEM Hypertension GI Gastroesophageal Reflux Disease Anesthetic Plan ASA status: 2 Anesthesia: General and Regional (specify below) Risk of > 500 ml blood loss (7ml/kg in children): No Medications/Allergies Home Medications ?Medication ?Instructions ?Recorded ?Confirmed ?Last Taken ?Type hydrocortisone 2.5 % topical cream 1 applic MI QID PRN hemorrhoids 10 06/01/24 12/23/24 06/16/24 Rx with perineal applicator days #30 grams (Anusol-HC) losartan 100 mg tablet See Rx Instructions .Route 0 09/23/24 12/23/24 12/23/24 Rx .COMPLEX #30 tabs pantoprazole 40 mg tablet,delayed See Rx Instructions .Route 09/23/24 12/24/24 12/24/24 05:00 Rx release .COMPLEX #30 tabs Allergies Allergy/AdvReac Type Severity Reaction Status Date / Time Sulfa (Sulfonamide Allergy Intermediate Unknown Verified 12/24/24 06:41 Antibiotics) [facility] Anesthesia Medical History Hypertension COVID-19 Chronic back pain Surgical History History of hemorrhoidectomy Family History Father Hypertension Mother Hypertension Social History (Reviewed 12/21/24 @ 13:24 by DOROTHY Parmar Smoking and tobacco/nicotine status: never used tobacco/nicotine Alcohol intake: current Alcohol intake frequency: holidays/special occasions only Substance/Drug Use: never Anesthesia Procedures Nerve Block Nerve Block 1: Main Anesthesia: general anesthesia Time Out Performed: Yes Consent: requested by attending/covering physician, from patient, from other, risks and benefits reviewed and patient agrees to proceed Nerve block location: interscalene (R) Anesthesia monitors applied: pulse oximetry, EKG, BP cuff and oxygen Nerve block position: semi sitting Anesthetic Used: ropivicaine 0.5% (20 ml) and with decadron (4 mg) Ultrasound used to: recognize landmarks, visualize and ID brachial plexus, in supraclavicular region and visualize and ID interscalene groove Interscalene/Femoral BLK: 2 stimuplex 22 g needle used for position and inplane approach and visualize local anesthetic spread Injection: neg aspiration of heme Patient Tolerated Procedure: well Complications: none
[2024-12-24] MEDS: acetaminophen 1,000 MG/100 ML PIGGYBACK 400 MG IV (07:28)
[2024-12-24] MEDS: ketorolac 30 mg/mL INJ IVP (07:28)
[2024-12-24] MEDS: sodium chloride 0.9% 1,000 ML 30 ML IV (07:29)
[2024-12-24] MEDS: ceFAZolin 2,000 mg SDV 2000 MG IVP (07:56)
[2024-12-24] MEDS: EPINEPHrine 1 mg/mL INJ 2 MG XX (08:51)
--- NOTE | 2024-12-24 09:09 | PM.OP ---
Operative Report Date of procedure: December 24, 2024 Surgeon: Shiva Mobley DO Landscape Gardener: Chevy Mobley PA-C: PA was necessary for assistance in this case with shoulder positioning to execute the procedure, assistance with instrumentation, assist with wound closure and dressing application. Procedure: Preoperative diagnosis: Right shoulder subacromial impingement, AC joint arthritis post-op diagnosis: Right shoulder subacromial impingement bursitis, AC joint arthritis Procedure done: Right shoulder diagnostic and surgical arthroscopy with subacromial decompression (bursectomy/acromioplasty) Right shoulder diagnostic and surgical arthroscopy with AC joint resection (distal clavicle excision) Surgeon: Shiva Mobley DO Estimated blood loss: 5mL IV fluids: 1200mL Implants: none Complications: None Condition: stable Disposition: same day Brief History: Patient been seen and worked up in the outpatient setting for?right?shoulder?pain.? Pt had an MRI which showed findings below.? Patient's failed conservative treatment and has weakness.? We talked about treatment options far as nonoperative and operative intervention..? We talked about risk benefits complication alternatives surgical nonsurgical treatment options.? Understanding risk of surgery he agrees to proceed with surgical intervention.? All questions have been answered at this time.? Patient elects proceed with surgery and consent obtained in office. MR/MR shoulder RT wo/w con [id number] IMPRESSION: 1. No acute appearing labral tears. Suspected [place] type complex glenoid variant. Middle glenohumeral ligament appears intact. 2. Rotator cuff is intact. 3. Moderate degenerative arthritis AC joint fluid and edema. 4. Slight impingement on the distal supraspinatus with subacromial spurring. Procedure: Patient seen evaluated in the preoperative holding area.? Consent reviewed and signed with patient.? Once again reviewed patient's MRI results as well as? planned surgical intervention.? Correct extremity marked.? Patient seen evaluated by anesthesia department received regional anesthesia.? Once ready for surgery was taken back to the operative suite.? Patient then subsequently underwent anesthesia per the anesthesia department was transported onto the OR table.? Patient was then placed into a lateral decubitus position with a beanbag and was appropriately secured to the bed.? All bony prominences well-padded.? Patient then had the?right?upper extremity was then prepped and draped in standard orthopedic fashion.? Patient received appropriate preoperative antibiotics.? Final timeout performed. The?right?upper extremity was then held in hanging from traction utilizing sterile technique.? Next started with standard diagnostic and surgical arthroscopy with posterior portal position introduced arthroscope into the glenohumeral joint.? Visualized the glenohumeral joint I then introduced a spinal needle within the?rotator cuff interval to confirm appropriate anterior portal placement.? Once this was confirmed I then made my small incision and then introduced my arthroscopic shaver into the glenohumeral joint.? After thorough debridement it was evident that patient had a Greene complex of the anterior labrum no acute tear was noted circumferentially throughout the labrum no superior labral tear and no biceps tendinitis or tearing was appreciated. Next I evaluated the subscapularis tendon which was intact and no evidence of tear. ?Next there was no significant labral tearing at biceps anchor and circumferential.? ? This point time I then visualized the glenohumeral joint.? The glenohumeral joint was found to have grade 0 chondromalacia throughout.? Axillary pouch was free of loose bodies from viewing the posterior portal.? Next a visualized the?rotator cuff superiorly and there was found to be a no evidence of rotator cuff tear negative escape bubble sign. ? This completed my work within the glenohumeral joint all fluid was suctioned free of the joint.? ?Next I reintroduced the arthroscope posteriorly.? And went to the subacromial space.? I established my lateral working portal.? Thermal wand was then introduced laterally and then I subsequently performed extensive bursectomy of the subacromial space.? Patient had a large anterior bone spur.? At this point time I proceeded with my AC joint resection thermal wand was used and track to the anterior edge of the acromion and then tracked all the way to the AC joint.? Once identified the AC joint this was very arthritic in nature.? Thermal wand was placed anteriorly to establish appropriate plane for AC joint resection.? Once appropriate margins and anterior inferior and anterior capsule was released I then introduced arthroscopic shaver and a bur and performed AC joint resection of both the acromion to cope plane at the AC joint and a distal clavicle resection was then performed totaling 1 cm in size and was confirmed.? This completed my AC joint resection and I then introduced the arthroscopic shaver laterally while continuing to view posteriorly.? I then performed an acromioplasty to complete my subacromial decompression ?I then switched the arthroscope to the lateral portal and took the?shoulder?through range of motion and the?rotator cuff had no evidence of tear was stable and moved as a unit. ?Next I then introduced the arthroscopic shaver posteriorly to complete my subacromial decompression appropriate complaining all the way up to the lateral edge of the acromion.? This completed the surgery.? All fluid was suctioned from the?shoulder.? All instruments were removed.? The lateral incision was then closed with nylon stitches.? As well as the portal sites closed with portal nylon stitches.? Xeroform 4 x 4's ABD and tape was then applied to the?right?shoulder?and was placed into a?shoulder? sling.? Patient was then awakened from anesthesia and then taken back to PACU in stable condition.? Patient tolerated procedure without any issues. Disposition: Patient taken back in stable condition recovering well.? Dressings on in place clean dry and intact.? Will be nonweightbearing to the?right?upper extremity.?? Patient to follow-up with me in the office in 2 weeks.? Patient will receive appropriate discharge instruction as well as pain medication postoperatively.? All questions answered.? We will contact the office for any questions or concerns.
--- NOTE | 2024-12-24 09:09 | W.PM.BPON ---
Date of Procedure: 12/24/2024 Surgeon: Shiva Mobley DO Food Processing Plant Manager(s): Chevy Mobley PA-C Procedure(s) performed: Right shoulder diagnostic and surgical arthroscopy with subacromial decompression (bursectomy/acromioplasty) Right shoulder diagnostic and surgical arthroscopy with AC joint resection (distal clavicle excision) Findings of the procedure(s): Patient underwent procedure as planned without issues or complications no rotator cuff tear or labral tear noted. Estimated blood loss: 5 mL Specimen(s) removed: None Post-operative diagnosis: Right shoulder subacromial impingement bursitis, AC joint arthritis
--- NOTE | 2024-12-24 09:55 | PM.PACU ---
PACU note Narrative: Patient is a 34-year-old male that just underwent a right shoulder arthroscopy. Patient transferred to PACU in stable condition. Pain is well controlled. shoulder Dressing on , dry and in place. Patient's operative arm is in a shoulder immobilizer. Patient is awake and alert and able to respond to my questions accordingly. Patient's fingers are warm with good perfusion. Normal cap refill under 2 seconds. Radial pulse 2+. unable to assess further range of motion in arm due to sling. Sensation to hand intact. Exam: awake Disposition: discharged
--- NOTE | 2024-12-24 11:05 | ANE.PACU2 ---
Inpatient post-anesthesia follow up: Vital signs: Temperature 97.5 F Pulse Rate 78 Respiratory Rate 18 Blood Pressure 148/98 Pulse Oximetry 99 Oxygen Delivery Me thod Room Air Oxygen Flow Rate 6 Fraction of Inspir ed Oxygen
== END 2024-12-24 11:04 | disposition home or self-care (01) ==
PROVIDERS: PCP Nurse Practitioner Family; Visit Provider Student in an Organized Health Care Education/Training Program
PROC: (CPT 29805; principal; 2024-12-24 07:40)
PROC: (CPT 29826; 2024-12-24 07:40)
PROC: 0RSG0ZZ Reposition Right Acromioclavicular Joint, Open Approach (ICD-10-PCS; CPT 29824; 2024-12-24 07:40)
DX: M19.011 Primary osteoarthritis, right shoulder (principal); M75.41 Impingement syndrome of right shoulder; I10 Essential (primary) hypertension; K21.9 Gastro-esophageal reflux disease without esophagitis
CPT/HCPCS: 29824; 29826; J0131; J0171; J0690; J1100; J1885; J2250; J2405; J2704; J3010; J7030; J9999

== ENCOUNTER → 2025-01-08 10:05 | Outpatient (BNVA) | payer MEDICAID, SELFPAY | PROVIDERS: PCP Nurse Practitioner Family; Visit Provider Physician Assistant | DX: Z98.890 Other specified postprocedural states (principal) | CPT/HCPCS: 99024 ==

== ENCOUNTER → 2025-03-24 14:51 | Outpatient (BNVA) | payer MEDICAID, SELFPAY | PROVIDERS: PCP Nurse Practitioner Family; Visit Provider Physician Assistant | DX: Z98.890 Other specified postprocedural states (principal) | CPT/HCPCS: 99024 ==

== ENCOUNTER → 2025-05-19 15:05 | Outpatient (BNVA) | payer MEDICAID, SELFPAY | PROVIDERS: PCP Nurse Practitioner Family; Visit Provider Student in an Organized Health Care Education/Training Program | DX: Z98.890 Other specified postprocedural states (principal) | CPT/HCPCS: 99213 ==